=== PATIENT | male | born 1980 | race Caucasian/White ===

== ENCOUNTER 2023-01-30 19:06 | Emergency (ER) | payer BC, MEDICARE, SELFPAY ==
[2023-01-30 19:30] VITALS: BP 132/82; PULSE 67; RESP 18; TEMP 36.6; O2SAT 98; BMI 41.1
--- NOTE | 2023-01-30 19:37 | XR_ITS ---
PROCEDURE INFORMATION: Exam: XR Chest Exam date and time: 01/30/2023 7:36 PM Age: 42 years old Clinical indication: Condition or disease; Other: Possible blood clot TECHNIQUE: Imaging protocol: Radiologic exam of the chest. Views: 2 views. COMPARISON: No relevant prior studies available. FINDINGS: Lungs: Normal pulmonary expansion. Pulmonary vasculature grossly normal. No gross pulmonary infiltrates or edema pattern. Pleural spaces: No pleural effusion. No pneumothorax. Heart/Mediastinum: Heart size normal. No tracheal/mediastinal shift. Bones/joints: No acute osseous abnormalities are identified. Mild thoracic spondylosis. IMPRESSION: No acute thoracic process.
[2023-01-30 20:11] LABS: Basophils # 0.1 K/mm3 (0-0.2); Basophils % 1.2 % (0.1-2.0); Eosinophils # 0.2 K/mm3 (0.0-0.4); Eosinophils % 2.1 % (0.1-12.0); Hematocrit 46.7 % (42.0-52.0); Hemoglobin 15.2 g/dL (14.1-18.0); Lymphocytes # 2.2 K/mm3 (0.7-4.5); Lymphocytes % 23.9 % (10-50); Mean Corpuscular HGB Conc 32.6 g/dL (31.8-35.4); Mean Corpuscular Hemoglobin 30.4 pg (27.0-31.2); Mean Corpuscular Volume 93.1 fl (80-94); Mean Platelet Volume 8.5 fl (7.4-10.4); Monocytes # 0.5 K/mm3 (0.1-1.0); Monocytes % 5.8 % (1.7-9.3); Neutrophils # 6.3 K/mm3 (1.8-7.8); Platelet Count 262 K/mm3 (142-424); Red Blood Count 5.01 M/mm3 (4.60-6.20); White Blood Count 9.4 K/mm3 (4.8-10.8)
[2023-01-30 20:16] LABS: Prothrombin Time 11.8 seconds (10.1-12.5)
[2023-01-30 20:21] LABS: Alanine Aminotransferase 42 U/L (12-78); Albumin/Globulin Ratio 1.4 (1.1-1.8); Alkaline Phosphatase 98 U/L (38-126); Anion Gap 8.5 mEq/L (5-15); Aspartate Amino Transferase 36 U/L (17-59); Bilirubin,Total 0.4 mg/dl (0.2-1.3); Blood Urea Nitrogen 17 mg/dl (9-20); Calcium 7.9 mg/dl (8.4-10.2); Carbon Dioxide 30 mmol/L (22.0-30.0); Chloride 102 mmol/L (98-107); Creatinine Clearance Estimated 196 mL/min (50-200); Estimated Glomerular Filt Rate 82 ml/min (>60); GFR (African American) 99 ML/MIN (>60); Globulin 2.8 g/dL (1.3-3.2); Glucose 83 mg/dl (74-100); Potassium 3.5 mmoL/L (3.5-5.1); Sodium 137 mmol/L (136-145); Total Protein,Serum 6.8 g/dl (6.3-8.2)
--- NOTE | 2023-01-30 20:25 | HMH.EDLOEX ---
Discharge Plan Disposition Chief Complaint: Extremity Injury, Lower Prescriptions Prescriptions: No Action losartan 50 mg Tablet 50 mg PO DAILY metoprolol succinate 50 mg Tablet Extended Release 24 Hr 50 mg PO DAILY amlodipine 10 mg Tablet 10 mg PO DAILY aripiprazole [Abilify] 10 mg Tablet 10 mg PO DAILY Referrals Follow up/Referrals: Mackenzie Whiting [Primary Care Provider] - See instructions Clinical Impressions Clinical Impression: Acute superficial venous thrombosis of left lower extremity Instructions Patient Instructions: Superficial Thrombophlebitis Discharge ED Provider: Maricarmen (ED)Ousmane Lower Extremity Injury HPI General Chief Complaint: Extremity Injury, Lower Stated Complaint: left leg knot with pain/burning sensation/hot Time Seen by Provider: 01/30/23 20:25 Mode of Arrival: Ambulatory Source of Information: Patient, Spouse and Medical Record Limitations: No Limitations Description of Symptoms (Recalled from ER Triage Doc. by RN): Pt arrives via private vehicle. States that has a history of varicose veings but states that for the prior two weeks hes noticed that he has a knot with tenderness on the inner aspect of his left thigh. States that today at work the pain became more severe and the knot in his thigh was warm to the touch with pain that radiates down his thigh several inches above the knot. Denies history of blood clots. History of Present Illness HPI Narrative: swollen lt inner thigh with hx of varicose veins - no hx of dvt - Onset (ago): day(s) Type of Injury: other Severity: moderate Related Data Home Medications Medication Instructions Recorded Confirmed amlodipine 10 mg tablet 10 mg PO DAILY High blood pressure 01/30/23 01/30/23 aripiprazole 10 mg tablet (Abilify) 10 mg PO DAILY Depression 01/30/23 01/30/23 losartan 50 mg tablet 50 mg PO DAILY High blood pressure 01/30/23 01/30/23 metoprolol succinate 50 mg 50 mg PO DAILY High blood pressure 01/30/23 01/30/23 tablet,extended release 24 hr Allergies Allergy/AdvReac Type Severity Reaction Status Date / Time No Known Allergies Allergy Unverified 10/31/17 14:21 [facility] Disclaimer: The information contained in this section may have been updated after the patient was seen, as this information can be updated by other users. Social History Smoking Status: Current every day smoker alcohol intake: never current occupational status: employed Travel in the last 8 weeks: None ROS Obtained: Yes All systems reviewed & no additional complaints except as documented Physical Exam General General appearance: alert Head Head exam: normocephalic Eye Eye exam: Present PERRL and EOMI ENT ENT exam: Present mucous membranes moist Neck Neck exam: Present trachea midline Respiratory Respiratory exam: Absent respiratory distress Cardiovascular Cardiovascular exam: Present regular rate Expanded Lower Extremity Exam Left: Neurovascular/Tendon exam: Present other (has lt inner thigh superficial venous chnges - no clinical evid of dvt ); Absent pulse deficit, motor deficit or sensory deficit Neurological Exam Neurological exam: Present alert, oriented X3 and CN II-XII intact Skin Skin exam: Absent rash Medical Decision Making Medical Records Medical records reviewed: Yes I reviewed the patient's medical records. Dante Inquiry Pt receiving controlled substance: No Vital Signs: 01/30/23 19:30 Temperature 98 F Temperature Source Oral Pulse Rate [Apical] 67 Respiratory Rate 18 Blood Pressure [Right Arm] 132/82 Blood Pressure Mean [Right Arm] 98 Blood Pressure Source [Right Arm] Automatic Cuff Blood Pressure Position [Right Arm] Sitting 02 Sat by Pulse Oximetry 98 Oxygen Delivery Method Room Air Lab Data Lab results reviewed: Yes I reviewed the patient's lab results. Lab Results 01/30/23 19:20: WBC 9.4, RBC 5.01, Hgb 15.2, Hct 46.7, MCV 93.1, MCH 30.4, MCHC 32.6, RDW 14
[2023-01-30 20:40] LABS: Procalcitonin 0.053 ng/mL (0.0-2.0)
[2023-01-30 20:42] LABS: Erythrocyte Sedimentation Rate 8 mm/hr (0-15)
[2023-01-30 20:46] VITALS: BP 132/82; PULSE 67; RESP 18; TEMP 36.6; O2SAT 98
== END 2023-01-30 20:47 | disposition home or self-care (01) ==
PROVIDERS: Emergency Provider Emergency Medicine; PCP Family Medicine
DX: S89.90XA Unspecified injury of unspecified lower leg, initial encounter (principal); I82.819 Embolism and thrombosis of superficial veins of unspecified lower extremity
CPT/HCPCS: 71046; 80053; 84145; 85025; 85610; 85651; 86140; 99284; 99285

== ENCOUNTER 2023-08-24 20:30 | Emergency (ER) | payer BC, SELFPAY ==
[2023-08-24 20:31] VITALS: BP 117/67; PULSE 77; RESP 20; TEMP 37; O2SAT 97; BMI 39.8
--- NOTE | 2023-08-24 21:25 | PC.NURSE ---
Bladder scanned pt at this time, post void. -3 ml
[2023-08-24 22:02] LABS: Basophils # 0.1 K/mm3 (0-0.2); Basophils % 0.3 % (0.1-2.0); Eosinophils # 0.2 K/mm3 (0.0-0.4); Eosinophils % 1.4 % (0.1-12.0); Hematocrit 45.2 % (42.0-52.0); Hemoglobin 15.3 g/dL (14.1-18.0); Lymphocytes # 2.4 K/mm3 (0.7-4.5); Lymphocytes % 14.4 % (10-50); Mean Corpuscular HGB Conc 33.8 g/dL (31.8-35.4); Mean Corpuscular Volume 94.7 fl (80-94); Mean Platelet Volume 8.6 fl (7.4-10.4); Monocytes % 5.9 % (1.7-9.3); Neutrophils # 12.9 K/mm3 (1.8-7.8); Neutrophils % 77.9 % (37.0-80.0); Platelet Count 234 K/mm3 (142-424); Red Blood Count 4.78 M/mm3 (4.60-6.20); Red Cell Distribution Width 13.8 % (11.5-17.5); White Blood Count 16.5 K/mm3 (4.8-10.8)
[2023-08-24 22:05] LABS: Alanine Aminotransferase 43 U/L (12-78); Albumin Level 3.9 g/dl (3.5-5.0); Albumin/Globulin Ratio 1.1 (1.1-1.8); Alkaline Phosphatase 102 U/L (38-126); Anion Gap 15.6 mEq/L (5-15); Aspartate Amino Transferase 34 U/L (17-59); Bilirubin,Total 0.7 mg/dl (0.2-1.3); Blood Urea Nitrogen 16 mg/dl (9-20); Calcium 8.2 mg/dl (8.4-10.2); Carbon Dioxide 24 mmol/L (22.0-30.0); Chloride 101 mmol/L (98-107); Creatinine Clearance Estimated 170 mL/min (50-200); Estimated Glomerular Filt Rate 73 ml/min (>60); GFR (African American) 88 ML/MIN (>60); Globulin 3.4 g/dL (1.3-3.2); Glucose 118 mg/dl (74-100); Potassium 3.6 mmoL/L (3.5-5.1); Sodium 137 mmol/L (136-145); Total Protein,Serum 7.3 g/dl (6.3-8.2)
[2023-08-24 22:06] LABS: MANUAL DIFFERENTIAL MANUAL DIFFERENTIAL (MANUAL DIFF)
[2023-08-24 22:15] LABS: Lactic Acid 1.5 mmol/L (0.7-2.1)
[2023-08-24 22:19] VITALS: BP 112/63; PULSE 66; O2SAT 97
--- NOTE | 2023-08-24 22:19 | PC.NURSE ---
temp 2100- 98.2 2220-98.1
--- NOTE | 2023-08-24 22:27 | PC.NURSE ---
rounded on patient no new complaints.
[2023-08-24 22:30] VITALS: BP 132/69; PULSE 68; O2SAT 95
[2023-08-24 22:58] LABS: Eosinophils % 1 % (0-3); Lymphocytes % 18 % (10-50); Monocytes % 5 % (2-9); Neutrophils % 73 % (42-76); Platelet Estimate Normal; RBC Morphology Normal; Total Cells Counted 100
[2023-08-24 23:00] LABS: Microscopic, Urine URINE MICROSCOPIC (MICROSCOPIC)
[2023-08-24 23:02] LABS: Appearance,Urine CLEAR (Clear); Bilirubin,Urine Negative (Negative); Blood, Urine Negative (Negative); Color,Urine DARK YELLOW (Yellow); Glucose,Urine (UA) Negative (Negative); Ketones,Urine Negative (Negative); Leukocyte Esterase,Urine Negative (Negative); Nitrate,Urine POSITIVE (Negative); Protein,Urine TRACE (Negative); Specific Gravity, Urine >= 1.030 (1.005-1.030); Urobilinogen,Urine 0.2 EU/dl (0.2)
--- NOTE | 2023-08-24 23:07 | HMH.EDGENADL ---
Discharge Plan Disposition Patient Disposition: Home, Self-Care Prescriptions Prescriptions: New cefdinir 300 mg capsule 300 mg PO BID 10 Days Qty: 20 0RF No Action losartan 50 mg Tablet 50 mg PO DAILY metoprolol succinate 50 mg Tablet Extended Release 24 Hr 50 mg PO DAILY amlodipine 10 mg Tablet 10 mg PO DAILY aripiprazole [Abilify] 10 mg Tablet 10 mg PO DAILY omeprazole 40 mg capsule,delayed release(DR/EC) 40 mg PO DAILY Patient Comments: TAKE ONE (1) CAPSULE (40 MG) BY ORAL ROUTE ONCE DAILY BEFORE A MEAL FOR 30 DAYS Referrals Follow up/Referrals: Mackenzie Whiting [Primary Care Provider] - See instructions Activity Restrictions/Add. Instructions Additional Instructions/Restrictions: Call your family doctor to establish care for this visit to the emergency department and schedule follow-up within 48 hours to ensure improvement. If you have any worsening of your condition or any other concerning signs or symptoms, return to the emergency department or your primary care doctor for further evaluation. Antibiotic twice daily for 10 days Clinical Impressions Clinical Impression: Acute pyelonephritis Discharge ED Provider: José Miguel Suazo General Adult HPI General Chief complaint: Fever Stated complaint: fever 103.7, diff urinating Time Seen by Provider: 08/24/23 22:00 Mode of Arrival: Ambulatory Limitations: No Limitations Description of Symptoms (Recalled from ER Triage Doc. by RN): Pt reports fever X2 days, highest fever being 103.7, source opthal. Pt stated he took ibuprofen 1 hour befre coming in. He states medication releives fever for short period of time then it comes back. Pt states he has had issues urinating. States he has 2 streams , and his urine starts and stops . Pt reports reddish/yellow urine. Pt reports hx of prostates issues, needing fuentes catheter for a week, 8 years ago. History of Present Illness HPI narrative: 43-year-old male with history of BPH and urinary retention in the past presenting with fever, frequency, flank pain. Started 2 days ago. Patient states that has been getting worse. Having urinary frequency and urgency. Stating that when he is done urinating, having a feeling that he needs to continue going. Is also stating that he has a spasmodic pain, but no lelia dysuria hematuria. Flank pain is mild, does not radiate Related Data Home Medications Medication Instructions Recorded Confirmed amlodipine 10 mg tablet 10 mg PO DAILY High blood pressure 01/30/23 08/24/23 aripiprazole 10 mg tablet (Abilify) 10 mg PO DAILY Depression 01/30/23 08/24/23 losartan 50 mg tablet 50 mg PO DAILY High blood pressure 01/30/23 08/24/23 metoprolol succinate 50 mg 50 mg PO DAILY High blood pressure 01/30/23 08/24/23 tablet,extended release 24 hr omeprazole 40 mg capsule,delayed 40 mg PO DAILY 08/24/23 08/24/23 release Previous Rx's Medication Instructions Recorded cefdinir 300 mg capsule 300 mg PO BID 10 days #20 caps 08/24/23 Allergies Allergy/AdvReac Type Severity Reaction Status Date / Time No Known Allergies Allergy Unverified 10/31/17 14:21 [facility] Disclaimer: The information contained in this section may have been updated after the patient was seen, as this information can be updated by other users. Medical History (Updated 08/24/23 @ 23:32 by José Miguel Suazo MD) ADD (attention deficit disorder) ADHD Bipolar 1 disorder Enlarged prostate HLD (hyperlipidemia) HTN (hypertension) Social History (Updated 01/30/23 @ 20:37 by Ousmane Hernadez (ED)MD) Smoking Status: Current every day smoker alcohol intake: never current occupational status: employed Travel in the last 8 weeks: None ROS Obtained: Yes All systems reviewed & no additional complaints except as documented Physical Exam General General appearance: alert and in no apparent distress Head Head exam: atraumatic and normocephalic Eye Eye exam: Pre
[2023-08-24 23:12] VITALS: BP 133/91; PULSE 62; O2SAT 97
--- NOTE | 2023-08-24 23:19 | PC.NURSE ---
SPOKE WITH PT WHILE REASSESSING V/S, NO ACUTE DISTRESS NOTED, UPDATED ON PLAN OF CARE, PT VERBALIZED UNDERSTANDING
[2023-08-24 23:30] VITALS: BP 131/93; PULSE 57; O2SAT 95
--- NOTE | 2023-08-24 23:35 | PC.NURSE ---
Pt right toes wrapped with non adherent bandage and curlex, orthopedic shoe provided as well.
[2023-08-24 23:46] VITALS: BP 138/84; PULSE 77; RESP 18; TEMP 36.7; O2SAT 100
[2023-08-24 23:51] LABS: Bacteria,Urine 1+ /lpf; Squamous Epithelial Cell,Urine Occasional #/hpf (0-5)
[2023-08-25 00:21] VITALS: BP 132/84; PULSE 78; RESP 16; TEMP 36.6
== END 2023-08-25 00:24 | disposition home or self-care (01) ==
PROVIDERS: Emergency Provider Emergency Medicine; PCP Family Medicine
DX: N10 Acute pyelonephritis (principal); R50.9 Fever, unspecified; N40.1 Benign prostatic hyperplasia with lower urinary tract symptoms; F17.210 Nicotine dependence, cigarettes, uncomplicated; E78.5 Hyperlipidemia, unspecified; I10 Essential (primary) hypertension; F90.9 Attention-deficit hyperactivity disorder, unspecified type; F31.9 Bipolar disorder, unspecified
CPT/HCPCS: 80053; 81001; 83605; 85007; 85025; 96365; 99284; J0696

== ENCOUNTER 2023-09-08 15:29 | Emergency (ER) | payer BC, SELFPAY ==
[2023-09-08 15:30] VITALS: BP 107/71; PULSE 69; RESP 16; TEMP 36.7; O2SAT 96; BMI 39.8
--- NOTE | 2023-09-08 15:42 | PC.NURSE ---
DR MARQUEZ AT BEDSIDE
--- NOTE | 2023-09-08 15:48 | CT_ITS ---
PROCEDURE INFORMATION: Exam: CT Abdomen And Pelvis With Contrast Exam date and time: 09/08/2023 4:29 PM Age: 43 years old Clinical indication: Other: Hematouria, hematospermia; Additional info: Recent pyelo, now with hematospermia and hematuria TECHNIQUE: Imaging protocol: Computed tomography of the abdomen and pelvis with contrast. Radiation optimization: All CT scans at this facility use at least one of these dose optimization techniques: automated exposure control; mA and/or kV adjustment per patient size (includes targeted exams where dose is matched to clinical indication); or iterative reconstruction. Contrast material: ISOVUE 375; Contrast volume: 75 ml; Contrast route: IV; REPORTING DATA: Count of CT and Cardiac NM exams in prior 12 months: This patient has received 0 known CTs and 0 known cardiac nuclear medicine studies in the 12 months prior to the current study. COMPARISON: CR XR CHEST 2V 01/30/2023 7:36 PM FINDINGS: Lungs: Punctate right lower lobe granuloma. Liver: Hepatic steatosis noted. Subcentimeter hypodensities throughout the liver are too small to accurately characterize. Gallbladder and bile ducts: Cholelithiasis noted without pericholecystic fluid/stranding. Pancreas: No peripancreatic fluid stranding. No main pancreatic ductal dilation. Spleen: No splenomegaly. Adrenal glands: The adrenal glands are normal. Kidneys and ureters: There is a simple cyst in the left kidney. Nephrograms are symmetric. No nephrolithiasis or hydroureteronephrosis on either side. No solid lesions Stomach and bowel: No bowel wall thickening or distention. Appendix: A normal appendix is identified. Intraperitoneal space: There is no evidence of free intraperitoneal or pelvic fluid. Vasculature: Aorta is nonaneurysmal. Lymph nodes: No lymphadenopathy. Urinary bladder: Urinary bladder is unremarkable. Reproductive: Unremarkable as visualized. Bones/joints: No acute osseous abnormality. Soft tissues: Unremarkable. IMPRESSION: 1. Nephrograms are symmetric. No nephrolithiasis or hydroureteronephrosis on either side. No solid lesions 2. No acute abnormality in the abdomen or pelvis. 3. Hepatic steatosis. Cholelithiasis COMMENTS: Consistent with the [employer]'s Incidental Findings Committee white paper (J Am Alin Radiol 2018): Any incidental renal lesion less than 1 cm or classified as too small to characterize, or any incidental cystic renal lesion characterized as simple-appearing, is likely benign. No follow-up imaging is recommended for these lesions per consensus recommendations based on imaging criteria.
--- NOTE | 2023-09-08 15:51 | HMH.EDGENADL ---
Discharge Plan Disposition Patient Disposition: Home, Self-Care Prescriptions Prescriptions: New sulfamethoxazole-trimethoprim [Bactrim DS] 800-160 mg tablet 1 tab PO BID 14 Days Qty: 28 0RF No Action losartan 50 mg Tablet 50 mg PO DAILY metoprolol succinate 50 mg Tablet Extended Release 24 Hr 50 mg PO DAILY amlodipine 10 mg Tablet 10 mg PO DAILY aripiprazole [Abilify] 10 mg Tablet 10 mg PO DAILY omeprazole 40 mg capsule,delayed release(DR/EC) 40 mg PO DAILY Patient Comments: TAKE ONE (1) CAPSULE (40 MG) BY ORAL ROUTE ONCE DAILY BEFORE A MEAL FOR 30 DAYS cefdinir 300 mg capsule 300 mg PO BID 10 Days Qty: 20 0RF Referrals Follow up/Referrals: Mackenzie Whiting [Primary Care Provider] - See instructions Activity Restrictions/Add. Instructions Additional Instructions/Restrictions: These follow-up with a urologist as discussed. You may follow-up with Dr. Herron at [facility] which include [facility] you may also follow-up wherever else you would like. The working diagnosis is acute prostatitis causing her hematospermia and hematuria and you may need a prolonged course of antibiotics longer than what I prescribed for you. Return with high fevers or other concerns. Clinical Impressions Clinical Impression: Hematospermia, Hematuria, Acute prostatitis Instructions Patient Instructions: DI for Urinary Tract Infection (UTI), DI for Urinary Tract Infection in Children Discharge ED Provider: Esme Rae General Adult HPI General Chief complaint: Urogenital-Male Stated complaint: blood when urinating, lower back pain Time Seen by Provider: 09/08/23 15:40 History of Present Illness HPI narrative: Patient is a 43-year-old male presents today with hematospermia and hematuria. Was recently in the emergency department diagnosed with pyelonephritis was febrile had a leukocytosis and started on Omnicef. States that his symptoms had somewhat improved but has developed some lower back discomfort and now blood in the semen in his urine. Denies any ongoing fevers. He has had a history of a kidney stone which she was diagnosed with at the age of 27 but has had no recurrent symptoms or diagnoses of that. Denies any pain with defecation denies having had a recent prostate exam. Related Data Home Medications Medication Instructions Recorded Confirmed amlodipine 10 mg tablet 10 mg PO DAILY High blood pressure 01/30/23 08/24/23 aripiprazole 10 mg tablet (Abilify) 10 mg PO DAILY Depression 01/30/23 08/24/23 losartan 50 mg tablet 50 mg PO DAILY High blood pressure 01/30/23 08/24/23 metoprolol succinate 50 mg 50 mg PO DAILY High blood pressure 01/30/23 08/24/23 tablet,extended release 24 hr omeprazole 40 mg capsule,delayed 40 mg PO DAILY 08/24/23 08/24/23 release Previous Rx's Medication Instructions Recorded cefdinir 300 mg capsule 300 mg PO BID 10 days #20 caps 08/24/23 sulfamethoxazole 800 1 tab PO BID 14 days #28 tabs 09/08/23 mg-trimethoprim 160 mg tablet (Bactrim DS) Allergies Allergy/AdvReac Type Severity Reaction Status Date / Time No Known Allergies Allergy Unverified 10/31/17 14:21 [facility] Disclaimer: The information contained in this section may have been updated after the patient was seen, as this information can be updated by other users. Medical History (Updated 09/08/23 @ 18:48 by Esme Rae MD) ADD (attention deficit disorder) ADHD Bipolar 1 disorder Enlarged prostate HLD (hyperlipidemia) HTN (hypertension) Social History (Updated 01/30/23 @ 20:37 by Ousmane Hernadez (ED)MD) Smoking Status: Current every day smoker alcohol intake: never current occupational status: employed Travel in the last 8 weeks: None ROS Obtained: Yes All systems reviewed & no additional complaints except as documented Physical Exam General General appearance: alert and in no apparent distress Respiratory Respir
[2023-09-08 16:15] LABS: Chloride 107 mmol/L (98-107); Potassium 3.7 mmoL/L (3.5-5.1); Sodium 137 mmol/L (136-145)
[2023-09-08 16:18] LABS: Alanine Aminotransferase 43 U/L (12-78); Albumin Level 3.9 g/dl (3.5-5.0); Albumin/Globulin Ratio 1.3 (1.1-1.8); Alkaline Phosphatase 88 U/L (38-126); Anion Gap 7.7 mEq/L (5-15); Aspartate Amino Transferase 35 U/L (17-59); Bilirubin,Total 0.3 mg/dl (0.2-1.3); Blood Urea Nitrogen 11 mg/dl (9-20); Calcium 7.7 mg/dl (8.4-10.2); Carbon Dioxide 26 mmol/L (22.0-30.0); Creatinine Clearance Estimated 234 mL/min (50-200); Estimated Glomerular Filt Rate 105 ml/min (>60); GFR (African American) 127 ML/MIN (>60); Globulin 3.1 g/dL (1.3-3.2); Glucose 134 mg/dl (74-100)
[2023-09-08 16:21] LABS: Basophils % 0.5 % (0.1-2.0); Eosinophils # 0.2 K/mm3 (0.0-0.4); Eosinophils % 2.5 % (0.1-12.0); Hematocrit 47.5 % (42.0-52.0); Hemoglobin 16.3 g/dL (14.1-18.0); Mean Corpuscular HGB Conc 34.4 g/dL (31.8-35.4); Mean Corpuscular Hemoglobin 31.8 pg (27.0-31.2); Mean Corpuscular Volume 92.6 fl (80-94); Mean Platelet Volume 8.3 fl (7.4-10.4); Monocytes # 0.4 K/mm3 (0.1-1.0); Monocytes % 5.5 % (1.7-9.3); Neutrophils # 4.2 K/mm3 (1.8-7.8); Neutrophils % 62.4 % (37.0-80.0); Platelet Count 263 K/mm3 (142-424); Red Blood Count 5.13 M/mm3 (4.60-6.20); Red Cell Distribution Width 13.7 % (11.5-17.5); White Blood Count 6.7 K/mm3 (4.8-10.8)
[2023-09-08 16:27] LABS: Microscopic, Urine URINE MICROSCOPIC (MICROSCOPIC)
[2023-09-08 16:33] LABS: Appearance,Urine CLEAR (Clear); Bilirubin,Urine Negative (Negative); Blood, Urine Negative (Negative); Color,Urine YELLOW (Yellow); Glucose,Urine (UA) Negative (Negative); Ketones,Urine Negative (Negative); Leukocyte Esterase,Urine Negative (Negative); Nitrate,Urine Negative (Negative); PH,Urine 6.5 (5.0-8.5); Protein,Urine Negative (Negative)
--- NOTE | 2023-09-08 16:35 | PC.NURSE ---
DR MARQUEZ AT BEDSIDE
[2023-09-08 16:49] LABS: Bacteria,Urine Trace /lpf; Squamous Epithelial Cell,Urine Occasional #/hpf (0-5); WBC,Urine Occasional #/hpf (0-3)
--- NOTE | 2023-09-08 16:51 | PC.NURSE ---
Rounded on patient and family member; nothing needed at this time. Call light within reach of patient
[2023-09-08 17:56] VITALS: BP 110/51; PULSE 54; RESP 20; O2SAT 99
[2023-09-08 18:00] VITALS: BP 112/63; PULSE 58; O2SAT 96
[2023-09-08 18:50] VITALS: BP 112/63; PULSE 58; RESP 20; TEMP 36.7; O2SAT 96
[2023-09-12 02:42] LABS: Neisseria gonorrhoeae, NAA Negative (Negative)
== END 2023-09-08 18:51 | disposition home or self-care (01) ==
PROVIDERS: Emergency Provider Student in an Organized Health Care Education/Training Program; PCP Family Medicine
DX: M54.59 Other low back pain (principal); R31.0 Gross hematuria; R36.1 Hematospermia; N41.0 Acute prostatitis; F17.210 Nicotine dependence, cigarettes, uncomplicated; E78.5 Hyperlipidemia, unspecified; I10 Essential (primary) hypertension; F90.9 Attention-deficit hyperactivity disorder, unspecified type; F31.9 Bipolar disorder, unspecified
CPT/HCPCS: 74177; 80053; 81001; 85025; 87491; 87591; 96361; 96374; 96375; 99284; J2405; Q9967

== ENCOUNTER 2023-12-29 05:19 | Emergency (ER) | payer SELFPAY ==
--- NOTE | 2023-12-29 05:18 | ECG_ITS ---
APPROVED REPORT Exam: Resting ECG HR:71 bpm ECG Measurements Heart Rate 71 AXES WA 168 P 25 QRSd 102 QRS -2 QT 396 T 31 QTc 419 Conclusion SINUS RHYTHM ABNORMAL ECG UNCONFIRMED REPORT Electronically signed by : Roverto Bryan MD 12/30/2023 08:19:54
[2023-12-29 05:20] VITALS: BP 155/106; PULSE 68; RESP 15; TEMP 36.8; O2SAT 99; BMI 41.1
--- NOTE | 2023-12-29 05:27 | ED_ITS ---
Discharge Plan Disposition Patient Disposition: Home, Self-Care Condition: Good Prescriptions Prescriptions: New ondansetron 4 mg tablet,disintegrating 4 mg PO Q6H PRN (Reason: nausea and vomiting) Qty: 15 0RF No Action losartan 50 mg Tablet 50 mg PO DAILY metoprolol succinate 50 mg Tablet Extended Release 24 Hr 50 mg PO DAILY amlodipine 10 mg Tablet 10 mg PO DAILY aripiprazole [Abilify] 10 mg Tablet 10 mg PO DAILY omeprazole 40 mg capsule,delayed release(DR/EC) 40 mg PO DAILY Patient Comments: TAKE ONE (1) CAPSULE (40 MG) BY ORAL ROUTE ONCE DAILY BEFORE A MEAL FOR 30 DAYS cefdinir 300 mg capsule 300 mg PO BID 10 Days Qty: 20 0RF Referrals Follow up/Referrals: Mackenzie Whiting [Primary Care Provider] - See instructions Activity Restrictions/Add. Instructions Additional Instructions/Restrictions: You were evaluated in the ER for chest pain. Your workup is reassuring. You are appropriate for discharge at this time. Take the prescribed Zofran if needed for nausea and vomiting. You can take oksy-ivx-[id number] acid pill if needed for reflux type symptoms. Be sure not to exceed any recommended doses on the bottles if you take wbah-[id number]-[id number] medications. Make an appointment with your primary care physician for reevaluation in the next 2 to 3 days. Return to the ER with any new, worsening, or otherwise concerning symptoms. Clinical Impressions Clinical Impression: Chest pain, Acid reflux Discharge ED Provider: Indira Espinoza HPI <Indira Espinoza DO - Last Filed: 12/29/23 06:40> General Chief Complaint: Chest Pain Stated Complaint: Chest Pain Time Seen by Provider: 12/29/23 05:23 Mode of Arrival: Ambulatory Source of Information: Patient Limitations: No Limitations Description of Symptoms (Recalled from ER Triage Doc. by RN): Pt states Chest Pain that started approx one hour ago. L sided and midsternal pain. History of Present Illness HPI narrative: This patient is a 43-year-old male with history of obesity, hypertension, GERD, and hyperlipidemia presenting to the emergency department for evaluation with concern for heartburn that then turned into chest pain. He notes that all day yesterday, he had had nausea, vomiting, and diarrhea. He believes he had food poisoning. He does not sleep at night, usual sleep during the day, and over night he developed progressively worsening heartburn. Approximate hour ago, it turned into a substernal chest pain that was nonradiating. It did not go away, so he was concerned and decided to come to the emergency department. It actually significantly improved on the way. No other concerns noted at this time. Related Data Home Medications Medication Instructions Recorded Confirmed amlodipine 10 mg tablet 10 mg PO DAILY High blood pressure 01/30/23 12/29/23 aripiprazole 10 mg tablet (Abilify) 10 mg PO DAILY Depression 01/30/23 12/29/23 losartan 50 mg tablet 50 mg PO DAILY High blood pressure 01/30/23 12/29/23 metoprolol succinate 50 mg 50 mg PO DAILY High blood pressure 01/30/23 12/29/23 tablet,extended release 24 hr omeprazole 40 mg capsule,delayed 40 mg PO DAILY 08/24/23 12/29/23 release Previous Rx's Medication Instructions Recorded cefdinir 300 mg capsule 300 mg PO BID 10 days #20 caps 08/24/23 ondansetron 4 mg disintegrating 4 mg PO Q6H PRN nausea and 12/29/23 tablet vomiting #15 tabs Allergies Allergy/AdvReac Type Severity Reaction Status Date / Time No Known Allergies Allergy Unverified 10/31/17 14:21 [facility] <Indira Espinoza DO - Last Filed: 12/29/23 06:40> [facility] Disclaimer: The information contained in this section may have been updated after the patient was seen, as this information can be updated by other users. Medical History ADD (attention deficit disorder) ADHD Bipolar 1 disorder Enlarged prostate HLD (hyperlipidemia) HTN (hypertension) Social History Smoking Status: Current every day smoker alcohol intake: never current occupational status: employed Travel in the last 8 weeks: None <DO Sara Gonsalez Last Filed: 12/29/23 06:40> ROS Obtained: Yes All systems reviewed & no additional complaints except as documented Physical Exam <Indira Espinoza DO - Last Filed: 12/29/23 06:40> General General appearance: alert and in no apparent distress Head Head exam: atraumatic and normocephalic Eye Eye exam: Present normal appearance, PERRL and EOMI ENT ENT exam: Present normal exam, normal oropharynx, mucous membranes moist and normal external ear exam Neck Neck exam: Present normal inspection, full ROM and trachea midline; Absent tenderness Chest Chest inspection: Present normal inspection and symmetric chest wall rise; Absent tenderness Respiratory Respiratory exam: Present normal lung sounds bilaterally; Absent respiratory distress, wheezes, stridor or accessory muscle use Cardiovascular Cardiovascular exam: Present regular rate and normal rhythm Abdominal Exam Abdominal exam: Present soft; Absent distention, tenderness or guarding Extremities Exam Extremities exam: Present normal inspection, full ROM and normal capillary refill; Absent tenderness or edema Back Exam Back exam: Present normal inspection and full ROM; Absent tenderness Neurological Exam Neurological exam: Present alert, oriented X3, CN II-XII intact and normal gait; Absent motor sensory deficit Psychiatric Psychiatric exam: Present normal affect and normal mood Skin Skin exam: Present warm and dry HEART Score <Indira Espinoza DO - Last Filed: 12/29/23 06:40> HEART Score HEART Score assessment performed?: Yes History (anamnesis): Slightly suspicious ECG: Non-specific disturbance Age: <45 years Risk factors: 3 or more risk factors Troponin: </= normal limit HEART Score: 3 <Pravin Cohen MD - Last Filed: 12/29/23 09:04> HEART Score HEART Score: 3 Critical Care <Indira Espinoza DO - Last Filed: 12/29/23 06:40> Critical Care Time Critical Care Time: No Medical Decision Making <DO Sara Gonsalez Last Filed: 12/29/23 06:40> Medical Records Medical records reviewed: Yes I reviewed the patient's medical records. Dante Inquiry Pt receiving controlled substance: No Vital Signs Vital Signs: 12/29/23 05:20 12/29/23 05:35 12/29/23 07:00 Temperature 98.3 F Temperature Source Oral Pulse Rate 68 64 Pulse Rate [Left] 68 Respiratory Rate 15 Blood Pressure 116/84 Blood Pressure [Right Arm] 155/106 H Blood Pressure Mean 99 Blood Pressure Mean [Right Arm] 122 Blood Pressure Source [Right Arm] Automatic Cuff Blood Pressure Position [Right Arm] Sitting 02 Sat by Pulse Oximetry 99 96 Oxygen Delivery Method Room Air Room Air 12/29/23 07:31 Temperature Temperature Source Pulse Rate 72 Pulse Rate [Left] Respiratory Rate 14 Blood Pressure 114/70 Blood Pressure [Right Arm] Blood Pressure Mean Blood Pressure Mean [Right Arm] Blood Pressure Source [Right Arm] Blood Pressure Position [Right Arm] 02 Sat by Pulse Oximetry 94 L Oxygen Delivery Method Room Air Lab Data Labs: Lab Results 12/29/23 05:23: WBC 6.6, RBC 5.28, Hgb 16.3, Hct 48.8, MCV 92.3, MCH 30.9, MCHC 33.5, RDW 14.0, Plt Count 204, MPV 8.2, Neut % (Auto) 59.6, Lymph % (Auto) 25.3, Scre[place] % (Auto) 10.1 H, Eos % (Auto) 4.5, Baso % (Auto) 0.5, Neut # (Auto) 3.9, Lymph # (Auto) 1.7, Screven # (Auto) 0.7, Eos # (Auto) 0.3, Baso # (Auto) 0.0, Sodium 138, Potassium 3.6, Chloride 103, Carbon Dioxide 30, Anion Gap 8.6, BUN 13, Creatinine 1.10, Estimated Creat Clear 176, Estimated GFR 73, Est GFR ( Amer) 88, Glucose 98, Calcium 8.0 L, Total Bilirubin 0.4, AST 32, ALT 38, Alkaline Phosphatase 94, Troponin I < 0.01, Total Protein 7.2, Albumin 4.0, Globulin 3.2, Albumin/Globulin Ratio 1.3, Lipase 205 12/29/23 06:35: SARS-CoV-2 (PCR) Not detected, Influenza A Untype (PCR) Not detected, Influenza Type B (PCR) Not detected 12/29/23 08:14: Troponin I < 0.01 12/29/23 05:23 12/29/23 05:23 Response Orders (Tests/Meds): ED MEDICATIONS Generic Name Dose Route Start Last Admin Trade Name Freq PRN Reason Stop Dose Admin Sodium Chloride 8 ml 12/29/23 05:27 Sodium Chloride 0.9% 10ml Vial IV 01/28/24 05:26 NEEDED PRN dilute pepcid Discontinued Medications Generic Name Dose Route Start Last Admin Trade Name Freq PRN Reason Stop Dose Admin Belladonna Alkaloids 60 ml 12/29/23 05:27 12/29/23 05:35 Belladonna Alkaloids 60 Ml Ml PO 12/29/23 05:28 60 ml ONCE ONE Administration Famotidine 20 mg 12/29/23 05:27 12/29/23 05:38 Famotidine 20mg/2ml Vial IV 12/29/23 05:28 20 mg ONCE ONE Administration Ondansetron HCl 4 mg 12/29/23 05:27 12/29/23 05:38 Ondansetron 4mg/2ml Vial IV 12/29/23 05:28 4 mg ONCE ONE Administration ORDERS Category Date Time Status XR chest portable Stat Exams 12/29/23 05:30 Taken Complete Blood Count Auto Diff Stat Lab 12/29/23 05:23 Completed Comprehensive Metabolic Panel Stat Lab 12/29/23 05:23 Completed Lipase Stat Lab 12/29/23 05:23 Completed Rapid PCR Covid and Flu A/B Stat Lab 12/29/23 06:35 Completed Troponin I Q3H Lab 12/29/23 08:14 Completed Troponin I Q3H Lab 12/29/23 11:30 Ordered Troponin I Stat Lab 12/29/23 05:23 Completed ECG Data Tracing #1: ECG Narrative: Normal sinus rhythm with a ventricular rate of 71 bpm. Some motion artifact noted. No acute ST elevations concerning for STEMI. ECG initial impression date: 12/29/23 ECG initial impression time: 05:19 MDM Narrative Medical Decision Narrative: In summary, this patient is a 43-year-old male presenting to the Emergency Department for evaluation of heartburn that then turned into substernal chest pain. He had nausea, vomiting, and diarrhea yesterday. Differential diagnoses considered include but are not limited to ACS, GERD, dysrhythmia, esophagitis, Carol-Huertas tear, gastroenteritis. Ruling out the most morbid conditions drove assessment. On exam, the patient is nontoxic-appearing. He has normal vital signs on cardiac telemetry with the exception of very mild hypertension. Workup included CBC, CMP, lipase, troponin, chest x-ray, and EKG. He was given a GI cocktail as well as IV Pepcid and Zofran given his acid reflux symptoms. He is not given oral aspirin, as I feel that this likely is related to GERD as opposed to ACS, especially given his symptoms and normal EKG. Will continue to monitor. I independently interpreted today prior to the radiologist read and noted no acute focal consolidation. Please see their read for final interpretation. Labs were obtained that demonstrated no acutely concerning abnormalities with negative initial troponin. Patient did have significant improvement with GI cocktail and medications as above. Patient tyler on cardiac telemetry at this time. Given his medical history and the fact that the symptoms started approximate 1 hour prior to arrival, I feel a second troponin is indicated to exclude ACS. At 0630, patient was placed in ED observation status pending second troponin to determine whether or not the patient would be appropriate for discharge versus admission. The patient was provided serial reevaluations and cardiac monitoring while awaiting ultimate disposition. Patient care signed to the oncoming provider, Dr. Cohen, pending second troponin and disposition. Total ED observation time was []. I had a [id number] visit with the patient when providing discharge instructions. The total time involved in discharging this patient was less than 30 minutes. <Pravin Cohen MD - Last Filed: 12/29/23 09:04> Vital Signs Vital Signs: 12/29/23 05:20 12/29/23 05:35 12/29/23 07:00 Temperature 98.3 F Temperature Source Oral Pulse Rate 68 64 Pulse Rate [Left] 68 Respiratory Rate 15 Blood Pressure 116/84 Blood Pressure [Right Arm] 155/106 H Blood Pressure Mean 99 Blood Pressure Mean [Right Arm] 122 Blood Pressure Source [Right Arm] Automatic Cuff Blood Pressure Position [Right Arm] Sitting 02 Sat by Pulse Oximetry 99 96 Oxygen Delivery Method Room Air Room Air 12/29/23 07:31 Temperature Temperature Source Pulse Rate 72 Pulse Rate [Left] Respiratory Rate 14 Blood Pressure 114/70 Blood Pressure [Right Arm] Blood Pressure Mean Blood Pressure Mean [Right Arm] Blood Pressure Source [Right Arm] Blood Pressure Position [Right Arm] 02 Sat by Pulse Oximetry 94 L Oxygen Delivery Method Room Air Lab Data Labs: Lab Results 12/29/23 05:23: WBC 6.6, RBC 5.28, Hgb 16.3, Hct 48.8, MCV 92.3, MCH 30.9, MCHC 33.5, RDW 14.0, Plt Count 204, MPV 8.2, Neut % (Auto) 59.6, Lymph % (Auto) 25.3, Screven % (Auto) 10.1 H, Eos % (Auto) 4.5, Baso % (Auto) 0.5, Neut # (Auto) 3.9, Lymph # (Auto) 1.7, Screven # (Auto) 0.7, Eos # (Auto) 0.3, Baso # (Auto) 0.0, Sodium 138, Potassium 3.6, Chloride 103, Carbon Dioxide 30, Anion Gap 8.6, BUN 13, Creatinine 1.10, Estimated Creat Clear 176, Estimated GFR 73, Est GFR ( Amer) 88, Glucose 98, Calcium 8.0 L, Total Bilirubin 0.4, AST 32, ALT 38, Alkaline Phosphatase 94, Troponin I < 0.01, Total Protein 7.2, Albumin 4.0, Globulin 3.2, Albumin/Globulin Ratio 1.3, Lipase 205 12/29/23 06:35: SARS-CoV-2 (PCR) Not detected, Influenza A Untype (PCR) Not detected, Influenza Type B (PCR) Not detected 12/29/23 08:14: Troponin I < 0.01 Response Orders (Tests/Meds): ED MEDICATIONS Generic Name Dose Route Start Last Admin Trade Name Freq PRN Reason Stop Dose Admin Sodium Chloride 8 ml 12/29/23 05:27 Sodium Chloride 0.9% 10ml Vial IV 01/28/24 05:26 NEEDED PRN dilute pepcid Discontinued Medications Generic Name Dose Route Start Last Admin Trade Name Freq PRN Reason Stop Dose Admin Belladonna Alkaloids 60 ml 12/29/23 05:27 12/29/23 05:35 Belladonna Alkaloids 60 Ml Ml PO 12/29/23 05:28 60 ml ONCE ONE Administration Famotidine 20 mg 12/29/23 05:27 12/29/23 05:38 Famotidine 20mg/2ml Vial IV 12/29/23 05:28 20 mg ONCE ONE Administration Ondansetron HCl 4 mg 12/29/23 05:27 12/29/23 05:38 Ondansetron 4mg/2ml Vial IV 12/29/23 05:28 4 mg ONCE ONE Administration ORDERS Category Date Time Status XR chest portable Stat Exams 12/29/23 05:30 Taken Complete Blood Count Auto Diff Stat Lab 12/29/23 05:23 Completed Comprehensive Metabolic Panel Stat Lab 12/29/23 05:23 Completed Lipase Stat Lab 12/29/23 05:23 Completed Rapid PCR Covid and Flu A/B Stat Lab 12/29/23 06:35 Completed Troponin I Q3H Lab 12/29/23 08:14 Completed Troponin I Q3H Lab 12/29/23 11:30 Ordered Troponin I Stat Lab 12/29/23 05:23 Completed MDM Narrative Medical Decision Narrative: In summary, this patient is a 43-year-old male presenting to the Emergency Department for evaluation of heartburn that then turned into substernal chest pain. He had nausea, vomiting, and diarrhea yesterday. Differential diagnoses considered include but are not limited to ACS, GERD, dysrhythmia, esophagitis, Carol-Huertas tear, gastroenteritis. Ruling out the most morbid conditions drove assessment. On exam, the patient is nontoxic-appearing. He has normal vital signs on cardiac telemetry with the exception of very mild hypertension. Workup included CBC, CMP, lipase, troponin, chest x-ray, and EKG. He was given a GI cocktail as well as IV Pepcid and Zofran given his acid reflux symptoms. He is not given oral aspirin, as I feel that this likely is related to GERD as opposed to ACS, especially given his symptoms and normal EKG. Will continue to monitor. I independently interpreted today prior to the radiologist read and noted no acute focal consolidation. Please see their read for final interpretation. Labs were obtained that demonstrated no acutely concerning abnormalities with negative initial troponin. Patient did have significant improvement with GI cocktail and medications as above. Patient remains on cardiac telemetry at this time. Given his medical history and the fact that the symptoms started approximate 1 hour prior to arrival, I feel a second troponin is indicated to exclude ACS. At 0630, patient was placed in ED observation status pending second troponin to determine whether or not the patient would be appropriate for discharge versus admission. The patient was provided serial reevaluations and cardiac monitoring while awaiting ultimate disposition. Patient care signed to the oncoming provider, Dr. Cohen, pending second troponin and disposition. Cohen: Upon my assumption of care patient is stable and resting comfortably. I agree with primary provider's assessment and plan. Repeat troponin was also undetec tably low and reassuring. Patient remained on the monitor and had repeated assessments during his ED observation time. He is appropriate for discharge at this time. Total ED observation time was 2 hours 34 minutes. I had a [id number] visit with the patient when providing discharge instructions. The total time involved in discharging this patient was less than 30 minutes.
--- NOTE | 2023-12-29 05:30 | XR_ITS ---
PROCEDURE INFORMATION: Exam: XR Chest Exam date and time: 12/29/2023 5:40 AM Age: 43 years old Clinical indication: Pain; Chest pressure; Additional info: Chest pain, vomiting yesterday TECHNIQUE: Imaging protocol: Radiologic exam of the chest. Views: 1 view. COMPARISON: CR XR CHEST 2V 01/30/2023 7:36 PM FINDINGS: Lungs: Unremarkable. No consolidation. Pleural spaces: Unremarkable. No pleural effusion. No pneumothorax. Heart/Mediastinum: Unremarkable. No cardiomegaly. Bones/joints: Unremarkable. IMPRESSION: No acute findings.
[2023-12-29 05:31] LABS: Basophils % 0.5 % (0.1-2.0); Eosinophils # 0.3 K/mm3 (0.0-0.4); Eosinophils % 4.5 % (0.1-12.0); Hematocrit 48.8 % (42.0-52.0); Hemoglobin 16.3 g/dL (14.1-18.0); Lymphocytes # 1.7 K/mm3 (0.7-4.5); Lymphocytes % 25.3 % (10-50); Mean Corpuscular HGB Conc 33.5 g/dL (31.8-35.4); Mean Corpuscular Hemoglobin 30.9 pg (27.0-31.2); Mean Corpuscular Volume 92.3 fl (80-94); Mean Platelet Volume 8.2 fl (7.4-10.4); Monocytes # 0.7 K/mm3 (0.1-1.0); Monocytes % 10.1 % (1.7-9.3); Neutrophils # 3.9 K/mm3 (1.8-7.8); Neutrophils % 59.6 % (37.0-80.0); Platelet Count 204 K/mm3 (142-424); Red Blood Count 5.28 M/mm3 (4.60-6.20); White Blood Count 6.6 K/mm3 (4.8-10.8)
[2023-12-29 05:35] VITALS: PULSE 68
[2023-12-29] MEDS: BELLADONNA ALKALOIDS 60 ML ML PO (05:35)
[2023-12-29] MEDS: ONDANSETRON 4MG/2ML VIAL 4 MG IV (05:38)
[2023-12-29] MEDS: FAMOTIDINE 20MG/2ML VIAL 20 MG IV (05:38)
[2023-12-29 05:40] LABS: Alanine Aminotransferase 38 U/L (12-78); Albumin/Globulin Ratio 1.3 (1.1-1.8); Alkaline Phosphatase 94 U/L (38-126); Anion Gap 8.6 mEq/L (5-15); Aspartate Amino Transferase 32 U/L (17-59); Bilirubin,Total 0.4 mg/dl (0.2-1.3); Blood Urea Nitrogen 13 mg/dl (9-20); Carbon Dioxide 30 mmol/L (22.0-30.0); Chloride 103 mmol/L (98-107); Creatinine Clearance Estimated 176 mL/min (50-200); Estimated Glomerular Filt Rate 73 ml/min (>60); GFR (African American) 88 ML/MIN (>60); Globulin 3.2 g/dL (1.3-3.2); Glucose 98 mg/dl (74-100); Lipase 205 U/L (23-300); Potassium 3.6 mmoL/L (3.5-5.1); Sodium 138 mmol/L (136-145); Total Protein,Serum 7.2 g/dl (6.3-8.2)
[2023-12-29 05:53] LABS: Troponin I < 0.01 ng/ml (0.00-0.034)
--- NOTE | 2023-12-29 06:36 | PC.NURSE ---
swab obtained and sent to lab
[2023-12-29 06:40] LABS: Coronavirus 19, PCR Not Detected (NotDetected); Influenza A, PCR Not Detected (NotDetected); Influenza B, PCR Not Detected (NotDetected)
[2023-12-29 07:00] VITALS: BP 116/84; PULSE 64; O2SAT 96
[2023-12-29 07:31] VITALS: BP 114/70; PULSE 72; RESP 14; O2SAT 94
--- NOTE | 2023-12-29 07:37 | PC.NURSE ---
rounded on pt he was laying in bed states he was good nothing needed at this time,call light at bs
--- NOTE | 2023-12-29 08:47 | PC.NURSE ---
pt resting in bed no needs at this time just waiting for second trop to result, call light at bs
[2023-12-29 08:55] LABS: Troponin I < 0.01 ng/ml (0.00-0.034)
[2023-12-29 09:09] VITALS: BP 120/73; PULSE 57; RESP 16; TEMP 36.6
== END 2023-12-29 09:16 | disposition home or self-care (01) ==
PROVIDERS: Emergency Provider Emergency Medicine; PCP Family Medicine
DX: R07.9 Chest pain, unspecified (principal); K21.9 Gastro-esophageal reflux disease without esophagitis; I10 Essential (primary) hypertension; E78.5 Hyperlipidemia, unspecified; F17.210 Nicotine dependence, cigarettes, uncomplicated
CPT/HCPCS: 71045; 80053; 83690; 84484; 85025; 87636; 93005; 96374; 96375; 99284; J2405

== ENCOUNTER 2024-02-13 09:49 | Inpatient (IN) | payer MEDICARE, SELFPAY ==
[2024-02-13] VITALS (21 sets, daily range): BP systolic 91–142; BP diastolic 67–96; PULSE 78–103; RESP 16–28; TEMP 36.6–37; O2SAT 94–100; BMI 41.1; BMI 42.0
--- NOTE | 2024-02-13 09:50 | ECG_ITS ---
APPROVED REPORT Exam: Resting ECG HR:101 bpm ECG Measurements Heart Rate [address] 157 P 15 QRSd 94 QRS 65 QT 351 T 45 QTc 409 Conclusion SINUS TACHYCARDIA INDETERMINATE AXIS INCOMPLETE RIGHT BUNDLE BRANCH BLOCK [90+ ms QRS DURATION, TERMINAL R IN V1/V2, 40+ ms S IN I/aVL/V4/V5/V6] NONSPECIFIC ST & T-WAVE ABNORMALITY ABNORMAL RHYTHM ECG UNCONFIRMED REPORT Electronically signed by : SHAE PENN, 02/14/2024 06:10:20
--- NOTE | 2024-02-13 10:03 | XR_ITS ---
PROCEDURE INFORMATION: Exam: XR Chest Exam date and time: 02/13/2024 10:11 AM Age: 43 years old Clinical indication: Shortness of breath; Additional info: quincy PARKER TECHNIQUE: Imaging protocol: Radiologic exam of the chest. Views: 2 views. COMPARISON: CR XR CHEST PORTABLE 12/29/2023 5:40 AM FINDINGS: Lungs: Unremarkable. No consolidation. Pleural spaces: Unremarkable. No pleural effusion. No pneumothorax. Heart/Mediastinum: Unremarkable. No cardiomegaly. Bones/joints: Unremarkable. IMPRESSION: No acute findings.
[2024-02-13] MEDS: ASPIRIN 81MG CHEWABLE TABLET 324 MG PO (10:14)
--- NOTE | 2024-02-13 10:14 | HMH.EDGENADL ---
Discharge Plan Disposition Patient Disposition: Xfer Short-Term Hosp Chief Complaint: Chest Pain Prescriptions Prescriptions: No Action losartan 50 mg Tablet 50 mg PO DAILY metoprolol succinate 50 mg Tablet Extended Release 24 Hr 50 mg PO DAILY amlodipine 10 mg Tablet 10 mg PO DAILY aripiprazole [Abilify] 10 mg Tablet 10 mg PO DAILY omeprazole 40 mg capsule,delayed release(DR/EC) 40 mg PO DAILY Patient Comments: TAKE ONE (1) CAPSULE (40 MG) BY ORAL ROUTE ONCE DAILY BEFORE A MEAL FOR 30 DAYS cefdinir 300 mg capsule 300 mg PO BID 10 Days Qty: 20 0RF ondansetron 4 mg tablet,disintegrating 4 mg PO Q6H PRN (Reason: nausea and vomiting) Qty: 15 0RF Referrals Follow up/Referrals: Mackenzie Whiting [Primary Care Provider] - See instructions Clinical Impressions Clinical Impression: Bilateral pulmonary embolism, Acute cor pulmonale due to saddle embolus of pulmonary artery Stand Alone Forms Stand Alone Forms: Transfer Record - ED Discharge ED Provider: José Miguel Suazo General Adult HPI General Chief complaint: Chest Pain Stated complaint: chest pain Time Seen by Provider: 02/13/24 10:03 History of Present Illness HPI narrative: 43-year-old male history of GERD, hypertension, hyperlipidemia presenting with chest pain. Patient states this started last night, 02/11. Chest pain feels like a pressure in the middle of his chest, does not radiate. He was not doing anything in particular at onset. Exacerbated by exertion, made better with rest. Nonpositional. Associated with lightheadedness with exertion. No nausea or vomiting, diaphoresis. No recent sick contacts, neurologic deficits, abdominal pain, or any other relevant history. Please note that above description of symptoms, in this electronic medical record under categorization of recalled from ER triage doctor by RN are reflective of an initial nursing assessment, however, is not reflective of my full history and physical exam that was personally taken and clarified. Consequentially, this preceding description of symptoms, which may include the patient's categorized chief complaint in the EMR, do not reflect my personal clinical impression, and the ultimate description of history of present illness and patient stated complaints should be deferred to this section of the note. Unless stated otherwise or congruent with this section of the note, additional signs, symptoms, or incongruence should be interpreted as inaccurate with my clinical impression. Related Data Home Medications Medication Instructions Recorded Confirmed amlodipine 10 mg tablet 10 mg PO DAILY High blood pressure 01/30/23 12/29/23 aripiprazole 10 mg tablet (Abilify) 10 mg PO DAILY Depression 01/30/23 12/29/23 losartan 50 mg tablet 50 mg PO DAILY High blood pressure 01/30/23 12/29/23 metoprolol succinate 50 mg 50 mg PO DAILY High blood pressure 01/30/23 12/29/23 tablet,extended release 24 hr omeprazole 40 mg capsule,delayed 40 mg PO DAILY 08/24/23 12/29/23 release Previous Rx's Medication Instructions Recorded cefdinir 300 mg capsule 300 mg PO BID 10 days #20 caps 08/24/23 ondansetron 4 mg disintegrating 4 mg PO Q6H PRN nausea and 12/29/23 tablet vomiting #15 tabs Allergies Allergy/AdvReac Type Severity Reaction Status Date / Time No Known Allergies Allergy Unverified 10/31/17 14:21 [facility] Disclaimer: The information contained in this section may have been updated after the patient was seen, as this information can be updated by other users. Medical History ADD (attention deficit disorder) ADHD Bipolar 1 disorder Enlarged prostate HLD (hyperlipidemia) HTN (hypertension) Social History Smoking Status: Never smoker alcohol intake: never current occupational status: employed Travel in the last 8 weeks: None ROS Obtained: Yes All systems reviewed & no additional complaints except as documented Physical Exam General General appearance: alert Head Head exam: atraumatic and normocephalic Eye Eye exam: Present normal appearance, PERRL and EOMI ENT ENT exam: Present mucous membranes moist Neck Neck exam: Present trachea midline Chest Chest inspection: Present normal inspection and symmetric chest wall rise Respiratory Respiratory exam: Present normal lung sounds bilaterally; Absent respiratory distress, wheezes, stridor, accessory muscle use or prolonged expiratory phase Cardiovascular Cardiovascular exam: Present regular rate and normal rhythm Abdominal Exam Abdominal exam: Present soft; Absent distention, tenderness, guarding, rebound or rigidity Extremities Exam Extremities exam: Absent edema Neurological Exam Neurological exam: Present alert, oriented X3 and CN II-XII intact Skin Skin exam: Present warm and dry; Absent cyanosis, diaphoresis or pallor Medical Decision Making Medical Records Medical records reviewed: Yes I reviewed the patient's medical records. Dante Inquiry Pt receiving controlled substance: No Dante was queried for this patient: No Vital Signs: 02/13/24 10:16 02/13/24 10:31 02/13/24 11:00 Temperature 98.6 F Temperature Source Oral Pulse Rate 92 H 87 Pulse Rate [Left Radial] 102 H Respiratory Rate 20 18 19 Blood Pressure 112/79 108/85 L Blood Pressure [Right Arm] 118/93 H Blood Pressure Mean 90 90 Blood Pressure Mean [Right Arm] 101 02 Sat by Pulse Oximetry 96 96 97 Oxygen Delivery Method Room Air Nasal Cannula Oxygen Flow Rate (LPM) 2 02/13/24 11:30 02/13/24 12:00 02/13/24 12:30 Temperature Temperature Source Pulse Rate 89 92 H 91 H Pulse Rate [Left Radial] Respiratory Rate 17 20 16 Blood Pressure 118/85 97/74 L 91/67 L Blood Pressure [Right Arm] Blood Pressure Mean 90 81 Blood Pressure Mean [Right Arm] 02 Sat by Pulse Oximetry 98 96 95 Oxygen Delivery Method Nasal Cannula Nasal Cannula Oxygen Flow Rate (LPM) 2 02/13/24 13:00 02/13/24 14:00 Temperature Temperature Source Pulse Rate 93 H 87 Pulse Rate [Left Radial] Respiratory Rate 21 23 Blood Pressure 112/80 118/77 Blood Pressure [Right Arm] Blood Pressure Mean Blood Pressure Mean [Right Arm] 02 Sat by Pulse Oximetry 97 96 Oxygen Delivery Method Nasal Cannula Oxygen Flow Rate (LPM) 2 Lab Data Lab Results 02/13/24 09:54: WBC 12.5 H, RBC 5.63, Hgb 16.9, Hct 52.7 H, MCV 93.5, MCH 30.0, MCHC 32.1, RDW 14.4, Plt Count 238, MPV 8.7, Neut % (Auto) 73.8, Lymph % (Auto) 19.5, Upton % (Auto) 4.3, Eos % (Auto) 1.6, Baso % (Auto) 0.8, Neut # (Auto) 9.2 H, Lymph # (Auto) 2.5, [place]pton # (Auto) 0.5, Eos # (Auto) 0.2, Baso # (Auto) 0.1, APTT 25.4, D-Dimer 2.21 H, Sodium 142, Potassium 4.1, Chloride 108 H, Carbon Dioxide 27, Anion Gap 11.1, BUN 18, Creatinine 1.20, Estimated GFR 66, Est GFR ( Amer) 80, Glucose 122 H, Calcium 9.0, Total Bilirubin 0.7, AST 36, ALT 47, Alkaline Phosphatase 125, Troponin I 0.38 H, NT-Pro-B Natriuret Pep 3040 H, Total Protein 7.3, Albumin 4.0, Globulin 3.3 H, Albumin/Globulin Ratio 1.2 02/13/24 09:54 02/13/24 09:54 Orders (Tests/Meds): ED MEDICATIONS Generic Name Dose Route Start Last Admin Trade Name Freq PRN Reason Stop Dose Admin Heparin Sodium/Dextrose 500 mls @ 40 mls/hr 02/13/24 13:00 02/13/24 13:20 Heparin 25,000 Units In D5w 500ml Premix IV 03/14/24 12:59 40 mls/hr .[id number] ALEK Administration 2,000 UNITS/HR Discontinued Medications Generic Name Dose Route Start Last Admin Trade Name Freq PRN Reason Stop Dose Admin Aspirin 324 mg 02/13/24 10:04 02/13/24 10:14 Aspirin 81mg Chewable Tablet PO 02/13/24 10:05 324 mg ONCE ONE Administration Heparin Sodium (Porcine) 10,000 unit 02/13/24 13:00 02/13/24 13:16 Heparin Sodium 5,000 Unit/Ml Vial IV 02/13/24 13:01 10,000 unit ONCE ONE Administration Heparin Sodium/Dextrose 500 mls @ 20 mls/hr 02/13/24 13:00 02/13/24 13:18 Heparin 25,000 Units In D5w 500ml Premix IV 03/14/24 12:59 20 mls/hr .Q25H ALEK Administration 1,000 UNITS/HR Iopamidol 70 ml 02/13/24 12:59 02/13/24 13:01 Iopamidol-370 (76%);100ml Bottle IV 02/13/24 13:00 70 ml ONCE ONE Administration Miscellaneous 1 each 02/13/24 12:45 02/13/24 12:56 Heparin Drip Consult NOTAPPLIC 03/14/24 12:44 1 each CONSULT PHARMACY ALEK Administration Sodium Chloride 10 ml 02/13/24 12:59 02/13/24 13:01 Sodium Chloride 0.9% 10ml Syr (Rad Only) IV 02/13/24 13:00 10 ml ONCE ONE Administration Sodium Chloride 50 ml 02/13/24 12:59 02/13/24 13:01 0.9 % Sodium Chloride 50 Ml Vial IV 02/13/24 13:00 50 ml ONCE ONE Administration ORDERS Category Date Time Status CTA Chest [CT angio chest PE protocol] Stat Cat Scan 02/13/24 11:11 Completed CXR 2 view (NOT portable) [XR chest 2V] Stat Exams 02/13/24 10:03 Completed POCUS Point of Care (ER Only) Stat Exams 02/13/24 12:23 Taken CBC w/Auto Diff [Complete Blood Count Auto Diff] Stat Lab 02/13/24 09:54 Completed CMP [Comprehensive Metabolic Panel] Stat Lab 02/13/24 09:54 Completed D-Dimer Stat Lab 02/13/24 09:54 Completed Heparin drip PTT [PTT Heparin (inpatient only)] Stat Lab 02/13/24 09:54 Completed Heparin drip PTT [PTT Heparin (inpatient only)] Stat Lab 02/13/24 14:15 Ordered NT Pro Brain Natriuretic Pep. Stat Lab 02/13/24 09:54 Completed Trop I [Troponin I] Stat Lab 02/13/24 09:54 Completed Troponin I Q3H Lab 02/13/24 13:15 Received Troponin I Q3H Lab 02/13/24 16:15 Ordered HEART Score History (anamnesis): Highly suspicious ECG: Non-specific disturbance Age: <45 years Risk factors: 1-2 risk factors Troponin: </= normal limit HEART Score: 4 Medical Decision Narrative: 43-year-old male history of GERD, hypertension, hyperlipidemia presenting with chest pain. Patient states this started last night, 02/11. Chest pain feels like a pressure in the middle of his chest, does not radiate. He was not doing anything in particular at onset. Exacerbated by exertion, made better with rest. Nonpositional. Associated with lightheadedness with exertion. No nausea or vomiting, diaphoresis. No recent sick contacts, neurologic deficits, abdominal pain, or any other relevant history. History was obtained via conversation with patient. On arrival, patient hemodynamically stable, alert, oriented x4, appropriate, GCS 15, moving all extremities spontaneously, pupils equal and reactive to light. Full physical exam performed and significant for well-appearing male in no acute distress. Lungs are clear to auscultation bilaterally, cardiac exam within normal limits, bilateral pulses intact upper and lower extremities and symmetric, abdomen is soft, nontender, nondistended. No lower extremity edema. Differential includes microvascular coronary artery disease, CHF, ACS, OH, coronary artery dissection, pneumothorax, PE, dissection, pericarditis, myocarditis, pneumothorax, aortic aneurysm, pneumonia, bronchitis, among others. Patient was given 324 mg aspirin p.o. for symptomatic management and correction of underlying abnormalities. Workup independently interpreted and significant for elevated initial troponin and BNP. Nonactionable CBC or chemistry. Patient's chest x-ray clear without concern for cardiopulmonary airspace disease, dimer elevated. See radiology read for full review of final results. Independent interpretation of EKG shows sinus tachycardia [address] or T wave changes concerning for acute ischemia, incomplete right bundle branch block. IA, QRS, QT intervals within normal limits. Bedside [id number] ultrasound with significant right heart strain 2-1 RV to LV ratio. Heart score 4. Patient started on heparin bolus and drip. Because concern for PE most prominent, CTA of the chest was ordered and patient has bilateral segmental pulmonary emboli with significant right heart strain with saddle embolus in both right and left pulmonary artery, but no saddle across main pulmonary artery. On reevaluation, patient still resting comfortably without any acute concerns or complaints. [facility] was contacted and case was discussed at length, recommended transfer and admission to telemetry unit. Because patient high risk for clinical decompensation if discharged, deemed appropriate for transfer and inpatient admission. Results were relayed to patient who voiced understanding and patient was agreeable to transfer, inpatient admission, and management. Patient was graciously accepted and transferred to for further definitive management, under Dr. Raman. Critical Care Critical Care Time Critical Care Time: Yes (CV) Attestation: On 02/13/24, the high probability of a clinically significant, sudden or life threatening deterioration of the following system(s) required my full and direct attention, intervention and personal management. The time I documented below is in addition to time spent performing reported procedures but includes the following listed in this critical care notation. Total Time Total Critical Care Time: 60
[2024-02-13 10:18] LABS: Basophils # 0.1 K/mm3 (0-0.2); Basophils % 0.8 % (0.1-2.0); Eosinophils # 0.2 K/mm3 (0.0-0.4); Eosinophils % 1.6 % (0.1-12.0); Hematocrit 52.7 % (42.0-52.0); Hemoglobin 16.9 g/dL (14.1-18.0); Lymphocytes # 2.5 K/mm3 (0.7-4.5); Lymphocytes % 19.5 % (10-50); Mean Corpuscular HGB Conc 32.1 g/dL (31.8-35.4); Mean Corpuscular Volume 93.5 fl (80-94); Mean Platelet Volume 8.7 fl (7.4-10.4); Monocytes # 0.5 K/mm3 (0.1-1.0); Monocytes % 4.3 % (1.7-9.3); Neutrophils # 9.2 K/mm3 (1.8-7.8); Neutrophils % 73.8 % (37.0-80.0); Platelet Count 238 K/mm3 (142-424); Red Blood Count 5.63 M/mm3 (4.60-6.20); Red Cell Distribution Width 14.4 % (11.5-17.5); White Blood Count 12.5 K/mm3 (4.8-10.8)
[2024-02-13 10:24] LABS: Alanine Aminotransferase 47 U/L (12-78); Albumin/Globulin Ratio 1.2 (1.1-1.8); Alkaline Phosphatase 125 U/L (38-126); Anion Gap 11.1 mEq/L (5-15); Aspartate Amino Transferase 36 U/L (17-59); Bilirubin,Total 0.7 mg/dl (0.2-1.3); Blood Urea Nitrogen 18 mg/dl (9-20); Carbon Dioxide 27 mmol/L (22.0-30.0); Chloride 108 mmol/L (98-107); Estimated Glomerular Filt Rate 66 ml/min (>60); GFR (African American) 80 ML/MIN (>60); Globulin 3.3 g/dL (1.3-3.2); Glucose 122 mg/dl (74-100); Potassium 4.1 mmoL/L (3.5-5.1); Sodium 142 mmol/L (136-145); Total Protein,Serum 7.3 g/dl (6.3-8.2)
[2024-02-13 10:30] LABS: D-Dimer 2.21 ug/mL (0.0-0.5)
[2024-02-13 10:45] LABS: Troponin I 0.38 ng/ml (0.00-0.034)
[2024-02-13 10:46] LABS: NT Pro Brain Natriuretic Pep. 3040 pg/mL (0-125)
--- NOTE | 2024-02-13 10:50 | PC.NURSE ---
Rounded on patient; patient reporting increased SOA. Encouraged patient to take deep breathes. O2 sat's 86% RA. Placed patient on 2L NC. O2 sat's improved to 97%. Yari METCALF notified MD of Elevated Trop and increased SOA.
--- NOTE | 2024-02-13 11:07 | ECG_ITS ---
APPROVED REPORT Exam: Resting ECG HR:97 bpm ECG Measurements Heart Rate 97 AXES SC 156 P 40 QRSd 97 QRS 83 QT 355 T 27 QTc 409 Conclusion SINUS RHYTHM NONSPECIFIC T-WAVE ABNORMALITY BORDERLINE ECG UNCONFIRMED REPORT Electronically signed by : SHAE PENN, 02/14/2024 06:09:36
--- NOTE | 2024-02-13 11:11 | CT_ITS ---
PROCEDURE INFORMATION: Exam: CTA Chest With Contrast Exam date and time: 02/13/2024 12:41 PM Age: 43 years old Clinical indication: Other: Elevated d dimer; Additional info: Elevated ddimer TECHNIQUE: Imaging protocol: Computed tomographic angiography of the chest with contrast. Exam focused on the arteries. 3D rendering (Not supervised by radiologist): MIP and/or 3D reconstructed images were created by the technologist. Radiation optimization: All CT scans at this facility use at least one of these dose optimization techniques: automated exposure control; mA and/or kV adjustment per patient size (includes targeted exams where dose is matched to clinical indication); or iterative reconstruction. Contrast material: ISOVUE; Contrast volume: 70 ml; Contrast route: INTRAVENOUS (IV); COMPARISON: CR XR CHEST 2V 02/13/2024 10:11 AM FINDINGS: Pulmonary arteries: Extensive bilateral pulmonary emboli are seen. Emboli are seen within both main pulmonary arteries is saddle emboli. There is no pulmonary embolism within the overall main pulmonary artery. Aorta: Unremarkable. No aortic aneurysm. No aortic dissection. Lungs: No focal infiltrates. 2 mm peripheral nodule image 3/36.. There is no evidence of a current pulmonary infarct. Pleural spaces: Unremarkable. No pneumothorax. No pleural effusion. Heart: The RV/LV is highly elevated measuring 58/22 the which is 2.6 indicating severe right heart strain. Lymph nodes: Unremarkable. No enlarged lymph nodes. Gallbladder and bile ducts: Cholelithiasis. Bones/joints: Unremarkable. No acute fracture. Soft tissues: Unremarkable. IMPRESSION: 1. Extensive bilateral pulmonary emboli including left main and right main saddle emboli and severe right heart strain. 2. 2 mm right upper lobe nodule. For patients at low risk (minimal or absent history of smoking and of other known risk factors), no routine follow-up is indicated. For patients at high risk (history of smoking or of other known risk factors), consider optional CT Chest at 12 months. (Reference: Rodger) REFERENCES: Rodger Torres et al. Guidelines for Management of Incidental Pulmonary Nodules Detected on CT Images: From the Fleischner Society 2017. Radiology. 2017;284(1):228-243.
--- NOTE | 2024-02-13 12:15 | PC.NURSE ---
pt reports that his chest pressure has returned. Another EKG perfromed and given to Dr. Suazo.
--- NOTE | 2024-02-13 12:52 | P.CONPHA_ITS ---
[facility] Pharmacy Heparin Dosing Demographic Data Admission date:: 02/13/24 Date: 02/13/24 Time: 12:52 Allergies Allergy/AdvReac Type Severity Reaction Status Date / Time No Known Allergies Allergy Unverified 10/31/17 14:21 Height: 1.88 m Weight: 145.15 kg Indication Medication therapy:: Heparin Current Indications:: DVT/PE - HIGH DOSE PROTOCOL Current Active Problems (Updated 02/13/24 @ 14:25 by José Miguel Suazo MD) Acute cor pulmonale due to saddle embolus of pulmonary artery (Acute) Bilateral pulmonary embolism (Acute) CVA?: No Bleeding problem?: No Kidney disease?: No AR?: Yes Additional History:: CHEST PAIN, VENOUS THROMBOSIS Desired PTT range:: 50-75 seconds Comments:: BASELINE PTT: 25.4 SECONDS Labs Anticoagulation Lab Results:: 02/13/24 09:54 Hgb 16.9 Hct 52.7 H Plt Count 238 Monitoring Dose Monitor 1: Date: 02/13/24 Time: 12:55 PTT Result:: BASELINE PTT: 25.4 SECONDS Infusion Rate:: INITIATE HEPARIN DRIP AT 2000 UNITS/HOUR = 40 ML/HOUR AND BOLUS 42135 UNITS HEPARIN IV ONCE. Comment:: PATIENT TRANSFERRED TO [facility] PER ED NOTE. Core Measures Is INR > or = 2 at discharge?: No Most Recent Labs:: Laboratory Results - last 24 hr 02/13/24 09:54: WBC 12.5 H, RBC 5.63, Hgb 16.9, Hct 52.7 H, MCV 93.5, MCH 30.0, MCHC 32.1, RDW 14.4, Plt Count 238, MPV 8.7, Neut % (Auto) 73.8, Lymph % (Auto) 19.5, Haakon % (Auto) 4.3, Eos % (Auto) 1.6, Baso % (Auto) 0.8, Neut # (Auto) 9.2 H, Lymph # (Auto) 2.5, Haakon # (Auto) 0.5, Eos # (Auto) 0.2, Baso # (Auto) 0.1, D-Dimer 2.21 H, Sodium 142, Potassium 4.1, Chloride 108 H, Carbon Dioxide 27, Anion Gap 11.1, BUN 18, Creatinine 1.20, Estimated GFR 66, Est GFR ( Amer) 80, Glucose 122 H, Calcium 9.0, Total Bilirubin 0.7, AST 36, ALT 47, Alkaline Phosphatase 125, Troponin I 0.38 H, NT-Pro-B Natriuret Pep 3040 H, Total Protein 7.3, Albumin 4.0, Globulin 3.3 H, Albumin/Globulin Ratio 1.2 Were Heparin and Warfarin started on the same day?: No
[2024-02-13] MEDS: HEPARIN DRIP CONSULT 1 EACH NOTAPPLIC (12:56)
[2024-02-13 12:59] LABS: PTT Heparin (inpatient only) 25.4 Seconds (23.6-34.0)
[2024-02-13] MEDS: SODIUM CHLORIDE 0.9% 10ML SYR (RAD ONLY) 10 ML IV (13:01)
[2024-02-13] MEDS: 0.9 % SODIUM CHLORIDE 50 ML VIAL IV (13:01)
[2024-02-13] MEDS: IOPAMIDOL-370 (76%);100ML BOTTLE 70 ML IV (13:01)
--- NOTE | 2024-02-13 13:01 | PC.NURSE ---
Calling [facility] for possible transfer
[2024-02-13] MEDS: HEPARIN SODIUM 5,000 UNIT/ML VIAL 10000 UNIT IV (13:16)
[2024-02-13] MEDS: HEPARIN SODIUM,PORCINE/D5W 500 ML 20 UNIT IV (13:18)
[2024-02-13] MEDS: HEPARIN SODIUM,PORCINE/D5W 500 ML 40 UNIT IV (13:20)
[2024-02-13 14:47] LABS: Troponin I 0.33 ng/ml (0.00-0.034)
[2024-02-13 15:24] LABS: PTT Heparin (inpatient only) 174.2 Seconds (23.6-34.0)
--- NOTE | 2024-02-13 16:27 | PC.NURSE ---
calling [facility] for bed update
--- NOTE | 2024-02-13 17:12 | PC.NURSE ---
Rounded on pt. No needs voiced at this time. Call light within reach.
[2024-02-13 17:31] LABS: Troponin I 0.27 ng/ml (0.00-0.034)
--- NOTE | 2024-02-13 17:31 | PC.NURSE ---
Critical trop of 0.27 called from Laquita in LAB. Dr. Espinoza notified.
--- NOTE | 2024-02-13 17:38 | PC.NURSE ---
Spoke to Mani at and patient will be on bed pending status until later tonight. Attending notified
--- NOTE | 2024-02-13 18:00 | PC.NURSE ---
Dr. Espinoza s/w Dr. Welch for bridge admission d/t still not having available bed. broiler supervisor notified for bed request.
--- NOTE | 2024-02-13 18:32 | PC.NURSE ---
report called to charline vasquez
--- NOTE | 2024-02-13 18:48 | PC.NURSE ---
Called 2nd floor for transport reminder. Primary RN will be coming with transport before end of shift.
--- NOTE | 2024-02-13 20:42 | PC.NURSE ---
Patient got a bed to [facility] 6 2 B, report was called to Tobin and EMS was called
--- NOTE | 2024-02-13 22:21 | P.HPDS_ITS ---
General Admission date:: 02/13/24 Discharge date: 02/14/24 *Admission Date: 02/13/24 *Chief complaint: SOB *History of present illness: From ED: HPI narrative: 43-year-old male history of GERD, hypertension, hyperlipidemia presenting with chest pain. Patient states this started last night, 02/11. Chest pain feels like a pressure in the middle of his chest, does not radiate. He was not doing anything in particular at onset. Exacerbated by exertion, made better with rest. Nonpositional. Associated with lightheadedness with exertion. No nausea or vomiting, diaphoresis. No recent sick contacts, neurologic deficits, abdominal pain, or any other relevant history. Please note that above description of symptoms, in this electronic medical record under categorization of recalled from ER triage doctor by RN are reflective of an initial nursing assessment, however, is not reflective of my full history and physical exam that was personally taken and clarified. Consequentially, this preceding description of symptoms, which may include the patient's categorized chief complaint in the EMR, do not reflect my personal clinical impression, and the ultimate description of history of present illness and patient stated complaints should be deferred to this section of the note. Unless stated otherwise or congruent with this section of the note, additional signs, symptoms, or incongruence should be interpreted as inaccurate with my clinical impression. [facility] Disclaimer: The information contained in this section may have been updated after the patient was seen, as this information can be updated by other users. Medical History ADD (attention deficit disorder) ADHD Bipolar 1 disorder Enlarged prostate HLD (hyperlipidemia) HTN (hypertension) Family History (Updated 02/13/24 @ 18:40 by Gretel Caro RN) Other No significant family history Social History (Updated 02/13/24 @ 18:41 by Gretel Caro RN) Smoking Status: Never smoker alcohol intake: never current occupational status: employed Travel in the last 8 weeks: None Review of Systems Review of Systems Review of systems:: pertinent systems reviewed and negative unless documented below Exam Data for Last 24 hours Vital signs and Labs for Last 24 Hours: Temp Pulse Resp BP Pulse Ox O2 Del Method O2 Flow Rate 97.9 F 99 H 24 142/96 H 94 L Nasal Cannula 2 02/13/24 20:00 02/13/24 22:00 02/13/24 22:00 02/13/24 22:00 02/13/24 22:00 02/13/24 22:00 02/13/24 22:00 Laboratory Results - last 24 hr 02/13/24 09:54: WBC 12.5 H, RBC 5.63, Hgb 16.9, Hct 52.7 H, MCV 93.5, MCH 30.0, MCHC 32.1, RDW 14.4, Plt Count 238, MPV 8.7, Neut % (Auto) 73.8, Lymph % (Auto) 19.5, [place] % (Auto) 4.3, Eos % (Auto) 1.6, Baso % (Auto) 0.8, Neut # (Auto) 9.2 H, Lymph # (Auto) 2.5, [place] # (Auto) 0.5, Eos # (Auto) 0.2, Baso # (Auto) 0.1, APTT 25.4, D-Dimer 2.21 H, Sodium 142, Potassium 4.1, Chloride 108 H, Carbon Dioxide 27, Anion Gap 11.1, BUN 18, Creatinine 1.20, Estimated GFR 66, Est GFR ( Amer) 80, Glucose 122 H, Calcium 9.0, Total Bilirubin 0.7, AST 36, ALT 47, Alkaline Phosphatase 125, Troponin I 0.38 H, NT-Pro-B Natriuret Pep 3040 H, Total Protein 7.3, Albumin 4.0, Globulin 3.3 H, Albumin/Globulin Ratio 1.2 02/13/24 13:15: Troponin I 0.33 H 02/13/24 14:30: APTT 174.2 H* 02/13/24 16:15: Troponin I 0.27 H 02/13/24 18:50: APTT 68.0 H* I & O for Last 24 hours: Intake & Output 02/10/24 02/11/24 02/12/24 02/13/24 23:59 23:59 23:59 23:59 Weight 148.353 kg Constitutional Constitutional: moderate distress and cooperative *Routine HEENT Exam Head: Present normocephalic Eye: Present EOMI and PERRL ENT: Present mucous membranes moist *Routine Neck Exam Neck: Present supple; Absent lymphadenopathy *Routine Respiratory Exam Respiratory: Present CTA bilaterally, diminished air movement and symmetric chest movement; Absent respiratory distress *Routine Cardiovascular Exam Cardiovascular: Present RRR *Routine Abdominal Exam Abdominal: Present soft and normoactive bowel sounds; Absent tenderness *Routine Rectal Exam Rectal:: deferred *Routine Genitalia Exam Genitalia:: deferred *Routine Extremities Exam Extremities: Absent cyanosis, clubbing or edema *Routine Skin Exam Skin: Present warm; Absent rash *Routine Neurological Exam Neurological: Present alert and oriented X3 Meds Home Medications and Allergies Home Medications Medication Instructions Recorded Confirmed Type amlodipine 10 mg tablet 10 mg PO DAILY High blood pressure 01/30/23 02/13/24 History aripiprazole 10 mg tablet (Abilify) 10 mg PO DAILY Depression 01/30/23 02/13/24 History losartan 50 mg tablet 50 mg PO DAILY High blood pressure 01/30/23 02/13/24 History metoprolol succinate 50 mg 50 mg PO DAILY High blood pressure 01/30/23 02/13/24 History tablet,extended release 24 hr cefdinir 300 mg capsule 300 mg PO BID 10 days #20 caps 08/24/23 02/13/24 Rx omeprazole 40 mg capsule,delayed 40 mg PO DAILY 08/24/23 02/13/24 History release ondansetron 4 mg disintegrating 4 mg PO Q6H PRN nausea and 12/29/23 02/13/24 Rx tablet vomiting #15 tabs rosuvastatin 5 mg tablet 5 mg PO HS 02/13/24 02/13/24 History New Prescriptions to Start Prescriptions: Allergies Allergy/AdvReac Type Severity Reaction Status Date / Time No Known Allergies Allergy Unverified 10/31/17 14:21 Hospital Course Hospital Course Hospital Course: admitted while bed become available at accepting facility for higher level of care. patient hemodinamically stable Results Data Completed and Pending Labs on day of discharge: Labs from last 24 hours 02/13/24 02/13/24 02/13/24 18:50 16:15 14:30 WBC RBC Hgb Hct MCV MCH MCHC RDW Plt Count MPV Neut % (Auto) Lymph % (Auto) [place] % (Auto) Eos % (Auto) Baso % (Auto) Neut # (Auto) Lymph # (Auto) [place] # (Auto) Eos # (Auto) Baso # (Auto) APTT 68.0 H* 174.2 H* D-Dimer Sodium Potassium Chloride Carbon Dioxide Anion Gap BUN Creatinine Estimated GFR Est GFR ( Amer) Glucose Calcium Total Bilirubin AST ALT Alkaline Phosphatase Troponin I 0.27 H NT-Pro-B Natriuret Pep Total Protein Albumin Globulin Albumin/Globulin Ratio 02/13/24 02/13/24 13:15 09:54 WBC 12.5 H RBC 5.63 Hgb 16.9 Hct 52.7 H MCV 93.5 MCH 30.0 MCHC 32.1 RDW 14.4 Plt Count 238 MPV 8.7 Neut % (Auto) 73.8 Lymph % (Auto) 19.5 [place] % (Auto) 4.3 Eos % (Auto) 1.6 Baso % (Auto) 0.8 Neut # (Auto) 9.2 H Lymph # (Auto) 2.5 [place] # (Auto) 0.5 Eos # (Auto) 0.2 Baso # (Auto) 0.1 APTT 25.4 D-Dimer 2.21 H Sodium 142 Potassium 4.1 Chloride 108 H Carbon Dioxide 27 Anion Gap 11.1 BUN 18 Creatinine 1.20 Estimated GFR 66 Est GFR ( Amer) 80 Glucose 122 H Calcium 9.0 Total Bilirubin 0.7 AST 36 ALT 47 Alkaline Phosphatase 125 Troponin I 0.33 H 0.38 H NT-Pro-B Natriuret Pep 3040 H Total Protein 7.3 Albumin 4.0 Globulin 3.3 H Albumin/Globulin Ratio 1.2 DS: Diagnosis Discharge Diagnosis (1) Acute cor pulmonale due to saddle embolus of pulmonary artery: Status: Acute Code(s): I26.02 - Saddle embolus of pulmonary artery with acute cor pulmonale (2) Bilateral pulmonary embolism: Status: Acute Code(s): I26.99 - Other pulmonary embolism without acute cor pulmonale Discharge Plan Disposition Patient Disposition: Xfer Short-Term Hosp Condition: Fair Discharge Order Discharge Orders: Discharge Order (Routine); Ordered 02/13/24 Ordered By: Wilbert Robles Follow up Plan Prescriptions/Medication Reconciliation: Continued rosuvastatin 5 mg tablet 5 mg PO HS Patient Comments: TAKE ONE (1) TABLET ONCE DAILY AT BEDTIME. losartan 50 mg Tablet 50 mg PO DAILY metoprolol succinate 50 mg Tablet Extended Release 24 Hr 50 mg PO DAILY amlodipine 10 mg Tablet 10 mg PO DAILY aripiprazole [Abilify] 10 mg Tablet 10 mg PO DAILY omeprazole 40 mg capsule,delayed release(DR/EC) 40 mg PO DAILY Patient Comments: TAKE ONE (1) CAPSULE (40 MG) BY ORAL ROUTE ONCE DAILY BEFORE A MEAL FOR 30 DAYS cefdinir 300 mg capsule 300 mg PO BID 10 Days Qty: 20 0RF ondansetron 4 mg tablet,disintegrating 4 mg PO Q6H PRN (Reason: nausea and vomiting) Qty: 15 0RF Problem Reconciliation Problems Reviewed?: Yes Patient Discharge Instructions ACTIVITY: Bed rest DIET: continue same diet Stand Alone Forms: Transfer Record Patient Instructions: Pulmonary Embolism, DI for Pulmonary Embolism Providers Primary Care Provider: Mackenzie Whiting Admit Provider: Saadia Welch Attending Provider: Saadia Welch
[2024-02-13 23:46] LABS: PTT Heparin (inpatient only) 48.3 Seconds (23.6-34.0)
[2024-02-14] VITALS: BP 148/99; PULSE 108; RESP 24
--- NOTE | 2024-02-14 00:01 | PC.NURSE ---
Called Magen at and updated him that the patient just left with EMS
== END 2024-02-14 00:02 | disposition short-term general hospital (02) | DRG 175 ==
LOC: ER 14:25 → 2ND 18:10
PROVIDERS: Admitting Provider Internal Medicine; Emergency Provider Emergency Medicine; PCP Family Medicine; Visit Provider Internal Medicine
DX: I26.02 Saddle embolus of pulmonary artery with acute cor pulmonale (principal); F90.8 Attention-deficit hyperactivity disorder, other type; F31.9 Bipolar disorder, unspecified; E78.5 Hyperlipidemia, unspecified; I10 Essential (primary) hypertension
CPT/HCPCS: 36415; 71046; 71275; 80053; 83880; 84484; 85025; 85378; 85730; 93005; Q9967

== ENCOUNTER 2024-06-16 21:24 | Emergency (ER) | payer MEDICARE, SELFPAY ==
[2024-06-16 21:26] VITALS: BP 120/75; PULSE 84; RESP 22; TEMP 37; O2SAT 97; BMI 44.9
--- NOTE | 2024-06-16 21:51 | ED_ITS ---
Discharge Plan Disposition Patient Disposition: Home, Self-Care Condition: Good Prescriptions Prescriptions: New methocarbamol 750 mg tablet 750 mg PO Q6H PRN (Reason: muscle spasm) Qty: 20 0RF prednisone 50 mg tablet 50 mg PO DAILY 5 Days Qty: 5 0RF lidocaine 5 % adhesive patch,medicated 1 patch topical DAILY Qty: 30 0RF Rx Instructions: leave on most painful area for up to 12 hrs No Action rosuvastatin 5 mg tablet 5 mg PO HS Patient Comments: TAKE ONE (1) TABLET ONCE DAILY AT BEDTIME. losartan 50 mg Tablet 50 mg PO DAILY metoprolol succinate 50 mg Tablet Extended Release 24 Hr 50 mg PO DAILY amlodipine 10 mg Tablet 10 mg PO DAILY aripiprazole [Abilify] 10 mg Tablet 10 mg PO DAILY omeprazole 40 mg capsule,delayed release(DR/EC) 40 mg PO DAILY Patient Comments: TAKE ONE (1) CAPSULE (40 MG) BY ORAL ROUTE ONCE DAILY BEFORE A MEAL FOR 30 DAYS cefdinir 300 mg capsule 300 mg PO BID 10 Days Qty: 20 0RF ondansetron 4 mg tablet,disintegrating 4 mg PO Q6H PRN (Reason: nausea and vomiting) Qty: 15 0RF Referrals Follow up/Referrals: Provider,Referral, MD [Primary Care Provider] - See instructions Activity Restrictions/Add. Instructions Additional Instructions/Restrictions: Please follow-up with your PCP in 48 hours for recheck. You may need further testing including MRI of the spine if no improvement. Return to ER for any worsening signs or symptoms including numbness tingling loss of motor or sensory in your lower extremities loss of bowel or bladder function. Clinical Impressions Clinical Impression: Back muscle spasm Instructions Patient Instructions: DI for Low Back Pain Print Language Print Language: Khmer Discharge ED Provider: Daryn Chavez General Adult HPI <RAMIRO Torres - Last Filed: 06/16/24 22:51> General Chief complaint: Back Pain/Injury Stated complaint: lower back is hurting Time Seen by Provider: 06/16/24 21:29 Mode of Arrival: Ambulatory Source of Information: Patient Limitations: No Limitations Description of Symptoms (Recalled from ER Triage Doc. by RN): 43 M presents from home with c/o low back pain that radiates to his right thigh with numbness to the lateral portion of his thigh. Patient denies loss of bowel or bladder or dysuria. Patient reports being diagnosed with back arthritis by his PCP recently. Approximately 2 days ago he repors a flare up of this pain and today he is unable to tolerate the pain. Patient reports this pain as spasms. He has tried otc medication without relief. He got 800mg Gabapentin from a family member which did ease his pain and symptoms. History of Present Illness HPI narrative: Patient presents for evaluation of bilateral low back pain. Patient reports that he has a history of osteoarthritis that was diagnosed at his PCPs office but has never had any formal advanced imaging or evaluation. Patient reports that over the last 2 days he has had increasing bilateral low back pain in the paraspinous musculature that is worse with sudden movement. It is best when sitting still worse with standing walking bending etc. Patient does report some numbness that travels down his right anterior thigh but no loss of bowel or bladder. He denies chest pain fever chills hemoptysis hematochezia melena nausea vomiting diarrhea any known trauma any recent injury. Related Data Home Medications ?Medication ?Instructions ?Recorded ?Confirmed amlodipine 10 mg tablet 10 mg PO DAILY High blood pressure 01/30/23 02/13/24 aripiprazole 10 mg tablet (Abilify) 10 mg PO DAILY Depression 01/30/23 02/13/24 losartan 50 mg tablet 50 mg PO DAILY High blood pressure 01/30/23 02/13/24 metoprolol succinate 50 mg 50 mg PO DAILY High blood pressure 01/30/23 02/13/24 tablet,extended release 24 hr omeprazole 40 mg capsule,delayed 40 mg PO DAILY 08/24/23 02/13/24 release rosuvastatin 5 mg tablet 5 mg PO HS 02/13/24 02/13/24 Previous Rx's ?Medication ?Instructions ?Recorded cefdinir 300 mg capsule 300 mg PO BID 10 days #20 caps 08/24/23 ondansetron 4 mg disintegrating 4 mg PO Q6H PRN nausea and 12/29/23 tablet vomiting #15 tabs lidocaine 5 % topical patch 1 patch topical DAILY Muscle spasm 06/16/24 #30 ea methocarbamol 750 mg tablet 750 mg PO Q6H PRN muscle spasm #20 06/16/24 tabs prednisone 50 mg tablet 50 mg PO DAILY 5 days #5 tabs 06/16/24 Allergies Allergy/AdvReac Type Severity Reaction Status Date / Time No Known Allergies Allergy Unverified 10/31/17 14:21 PFS <RAMIRO Torres - Last Filed: 06/16/24 22:51> [facility] Disclaimer: The information contained in this section may have been updated after the patient was seen, as this information can be updated by other users. Medical History ADD (attention deficit disorder) ADHD Bipolar 1 disorder Enlarged prostate HLD (hyperlipidemia) HTN (hypertension) Family History Other No significant family history Social History Smoking Status: Current every day smoker alcohol intake: never current occupational status: employed Travel in the last 8 weeks: None <RAMIRO Torres - Last Filed: 06/16/24 22:51> ROS Obtained: Yes Systems reviewed as appropriate & no additional complaints except as documented Physical Exam <RAMIRO Torres - Last Filed: 06/16/24 22:51> General General appearance: alert and in no apparent distress Respiratory Respiratory exam: Present normal lung sounds bilaterally Cardiovascular Cardiovascular exam: Present regular rate and normal rhythm Abdominal Exam Abdominal exam: Present soft and normal bowel sounds; Absent tenderness Extremities Exam Extremities exam: Present normal inspection and full ROM; Absent tenderness Back Exam Back exam: Present normal inspection and tenderness (In the bilateral paraspinal musculature of the lumbar spine); Absent full ROM (Reduced range of motion due to back pain) or vertebral tenderness Neurological Exam Neurological exam: Present alert, oriented X3, CN II-XII intact, normal gait and reflexes normal; Absent motor sensory deficit Medical Decision Making <RAMIRO Torres - Last Filed: 06/16/24 22:51> Medical Records Medical records reviewed: Yes I reviewed the patient's medical records. Dante Inquiry Pt receiving controlled substance: No Vital Signs: 06/16/24 21:26 06/16/24 23:01 Temperature 98.6 F 98.1 F Temperature Source Oral Oral Pulse Rate 79 Pulse Rate [Right] 84 Respiratory Rate 22 16 Blood Pressure 125/75 Blood Pressure [Left Arm] 120/75 Blood Pressure Mean [Left Arm] 90 Blood Pressure Source Automatic Cuff Blood Pressure Source [Left Arm] Automatic Cuff Blood Pressure Position Sitting Blood Pressure Position [Left Arm] Sitting 02 Sat by Pulse Oximetry 97 Oxygen Delivery Method Room Air Room Air Orders (Tests/Meds): ED MEDICATIONS Discontinued Medications Generic Name Dose Route Start Last Admin Trade Name Elba PRN Reason Stop Dose Admin Acetaminophen 1,000 mg 06/16/24 21:51 06/16/24 22:16 Acetaminophen 500mg Tab PO 06/16/24 21:52 1,000 mg ONCE ONE Administration Ketorolac Tromethamine 60 mg 06/16/24 21:51 06/16/24 22:16 Ketorolac 60mg/2ml Vial IM 06/16/24 21:52 60 mg ONCE ONE Administration Lidocaine 1 each 06/16/24 21:51 06/16/24 22:17 Lidocaine 5% Transdermal Patch TP 06/16/24 21:52 1 each ONCE ONE Administration Methocarbamol 500 mg 06/16/24 21:51 06/16/24 22:17 Methocarbamol 500mg Tablet PO 06/16/24 21:52 500 mg ONCE ONE Administration Prednisone 60 mg 06/16/24 21:51 06/16/24 22:17 Prednisone 20mg Tab PO 06/16/24 21:52 60 mg ONCE ONE Administration Medical Decision Narrative: In summary patient is a 43-year-old male who [facility] evaluation of low back pain. Patient is hemodynamically stable upon arrival, afebrile. Physical exam is remarkable for bilateral lumbar paraspinous tenderness without evidence of midline vertebral tenderness throughout the entire dorsal spine, no evidence of trauma ecchymosis bony deformity. Patient is neurovascularly intact distally in the bilateral lower extremities although he does have paresthesia of the right anterior thigh but no saddle anesthesia. Differential diagnosis includes muscle spasm versus sciatica versus degenerative disc disease etc. Initial workup was considered however patient appears to have soft tissue involvement with no trauma or focal neurologic findings thus radiographic imaging in the emergency department was deferred. Initial interventions include Tylenol Robaxin IM Decadron prednisone. Upon repeat evaluation patient had complete resolution of his discomfort after initial intervention. Given this patient is appropriate for discharge with prescription sent for Robaxin prednisone and topical lidocaine to his pharmacy with first dose is given here. <Daryn Chavez MD - Last Filed: 06/17/24 00:05> Vital Signs: 06/16/24 21:26 08/04/24 23:01 Temperature 98.6 F 98.1 F Temperature Source Oral Oral Pulse Rate 79 Pulse Rate [Right] 84 Respiratory Rate 22 16 Blood Pressure 125/75 Blood Pressure [Left Arm] 120/75 Blood Pressure Mean [Left Arm] 90 Blood Pressure Source Automatic Cuff Blood Pressure Source [Left Arm] Automatic Cuff Blood Pressure Position Sitting Blood Pressure Position [Left Arm] Sitting 02 Sat by Pulse Oximetry 97 Oxygen Delivery Method Room Air Room Air Orders (Tests/Meds): ED MEDICATIONS Discontinued Medications Generic Name Dose Route Start Last Admin Trade Name Elba PRN Reason Stop Dose Admin Acetaminophen 1,000 mg 06/16/24 21:51 06/16/24 22:16 Acetaminophen 500mg Tab PO 06/16/24 21:52 1,000 mg ONCE ONE Administration Ketorolac Tromethamine 60 mg 06/16/24 21:51 06/16/24 22:16 Ketorolac 60mg/2ml Vial IM 06/16/24 21:52 60 mg ONCE ONE Administration Lidocaine 1 each 06/16/24 21:51 06/16/24 22:17 Lidocaine 5% Transdermal Patch TP 06/16/24 21:52 1 each ONCE ONE Administration Methocarbamol 500 mg 06/16/24 21:51 06/16/24 22:17 Methocarbamol 500mg Tablet PO 06/16/24 21:52 500 mg ONCE ONE Administration Prednisone 60 mg 06/16/24 21:51 06/16/24 22:17 Prednisone 20mg Tab PO 06/16/24 21:52 60 mg ONCE ONE Administration Medical Decision Narrative: In summary patient is a 43-year-old male who presents to the emergency department for evaluation of low back pain. Patient is hemodynamically stable upon arrival, afebrile. Physical exam is remarkable for bilateral lumbar paraspinous tenderness without evidence of midline vertebral tenderness throughout the entire dorsal spine, no evidence of trauma ecchymosis bony deformity. Patient is neurovascularly intact distally in the bilateral lower extremities although he does have paresthesia of the right anterior thigh but no saddle anesthesia. Differential diagnosis includes muscle spasm versus sciatica versus degenerative disc disease etc. Initial workup was considered however patient appears to have soft tissue involvement with no trauma or focal neurologic findings thus radiographic imaging in the emergency department was deferred. Initial interventions include Tylenol Robaxin IM Decadron prednisone. Upon repeat evaluation patient had complete resolution of his discomfort after initial intervention. Given this patient is appropriate for discharge with prescription sent for Robaxin prednisone and topical lidocaine to his pharmacy with first dose is given here. I was consulted by the [place], and we discussed the complexity of the problems being addressed. I approved the treatment and management plan for this patient's care in the emergency department, thus performing a substantive port ion of the medical decision making. Daryn Chavez MD Critical Care <RAMIRO Torres - Last Filed: 06/16/24 22:51> Critical Care Time Critical Care Time: No
[2024-06-16] MEDS: ACETAMINOPHEN 500MG TAB 1000 MG PO (22:16)
[2024-06-16] MEDS: KETOROLAC 60MG/2ML VIAL 60 MG IM (22:16)
[2024-06-16] MEDS: LIDOCAINE 5% TRANSDERMAL PATCH 1 EACH TP (22:17)
[2024-06-16] MEDS: predniSONE 20MG TAB 60 MG PO (22:17)
[2024-06-16] MEDS: METHOCARBAMOL 500MG TABLET 500 MG PO (22:17)
--- NOTE | 2024-06-16 22:21 | PC.NURSE ---
rounded on patient, no needs at this time
[2024-06-16 23:01] VITALS: BP 125/75; PULSE 79; RESP 16; TEMP 36.7; O2SAT 98
== END 2024-06-16 23:03 | disposition home or self-care (01) ==
PROVIDERS: Emergency Provider Emergency Medicine
DX: M62.830 Muscle spasm of back (principal); M54.50 Low back pain, unspecified
CPT/HCPCS: 96372; 99283; J1885